=== PATIENT | male | born 1940 | race Caucasian/White ===

== ENCOUNTER → 2016-09-28 | Outpatient (CLI) | payer OTHER ==
[2016-03-04 11:13] VITALS: BP 141/64
--- NOTE | 2016-09-29 21:59 | MRI ---
Indication: Pain Exam: MRI left shoulder. Technique: Routine multiplanar multisequence imaging was performed through the left shoulder without contrast. Findings: The glenohumeral joint is intact. There is a moderate full thickness tear of the distal wong praspinatus tendon with fluid signal in the defect which measures approximately 2 cm. There is moder ate thickening and abnormal signal along the infraspinatus tendon with a small amount of fluid in th e surrounding bursa. There are moderate hypertrophic changes of the AC joint extending inferiorly ca using moderate narrowing of the acromiohumeral space. There is moderate thinning of the articular ca rtilage along the glenohumeral joint . The biceps tendon is intact. The labrum is intact and normal signal intensity. Impression: Moderate full-thickness tear of the distal supraspinatus tendon and associated joint effusion with m ild fluid in the surrounding bursa. Moderate infraspinatus tendinosis. Moderate hypertrophic changes of the AC joint causing moderate narrowing of the acromiohumeral space . 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 Reported By:
== END ==
LOC: RAD 08:21
PROVIDERS: ATTEND Specialist
DX: M19.012 Primary osteoarthritis, left shoulder (principal)
CPT/HCPCS: 73221

== ENCOUNTER 2016-11-07 14:28 | Emergency (ER) | payer OTHER ==
[2016-11-07 14:35] VITALS: BP 158/74; BMI 29.7
--- NOTE | 2016-11-07 16:12 | DR.GENAD ---
HPI - PCP Primary Care Physician: DR. WINTERS - Complaint/Symptoms Chief Complaint Doctors Comments: Patient complains of right lower back pain for the past two weeks. States he went to see Christina and she gave him a shot but it did not stop the pain. States he has not slept in two weeks due to the pain he has not been able to lay down and he thought it was his kidneys. He is having sharp lower back pain worst on bending or movement. He denies dysuria, hematuria, fever, chills or recent trauma. He is to have left should surgry by Dr. Steele but he has to have an echocardiogram to check his heart out. Chief Complaint:: THINKS HE HAS KIDNEY PROBLEMS. LOWER BACK AREA PAIN TIMES 2 WEEKS. - Nurses notes reviewed Nurses Notes Review: Yes - Source History Provided: Patient - Mode of Arrival Mode of Arrival: Ambulatory - Timing Onset of Chief Complaint: 10/24/16 Came on: Gradually - Duration Duration: Intermittent How lon Duration: Hours - Location Location: right lower back pain - Severity Severity: Moderate, Severe - Modifying Factors Worsens:: movement, bending Improves:: nothing PMH - PMH Past Medical History: Yes Past Medical History: Coronary Artery Disease, Hypertension, [place] Past Surgical History: Yes Surgical History: Angioplasty/Stents, Ortho Surgery - Family History History of Family Medical Conditions: Yes Family Medical History: [place] - Social History Does patient currently use any type of tobacco product: No Have you used tobacco products in the last 12 months: No Type of Tobacco Use: None Does any household member use tobacco: No Alcohol Use: None Do you use any recreational Drugs:: No Lives With: Family Lives Where: Home - infectious screening In the last 2 months have you had wt loss of >10#?: NO Have you had fever, night sweats or hemotysis?: No Have you traveled outside the country in the last 6 months?: No Isolation: Standard ROS - Review of Systems Constitutional: No Symptoms Reported, Malaise, Loss of Appetite Eyes: No Symptoms Reported ENTM: No Symptoms Reported. negative: See HPI, Ear Pain, Ear Discharge, Pulling on Ears, Hearing Loss, Nose Pain, Nose Discharge, Epistaxis, Nose Congestion, Mouth Pain, Mouth Swelling, Loose Teeth, Drooling, Throat Pain, Throat Swelling, Ear Foreign Body Respiratoy: No Symptoms Reported Cardiovascular: No Symptoms Reported Gastrointestinal/Abdominal: No Symptoms Reported Genitourinary: No Symptoms Reported. negative: See HPI, Discharge, Dysuria, Frequency, Hematuria, Pain, Bleeding, Other Neurological: No Symptoms Reported Musculoskeletal: No Symptoms Reported Integumentary: No Symptoms Reported Endocrine: No Symptoms Reported Psychiatric: No Symptoms Reported PE - Vital Signs Vitals: Temperature 98.4 F Pulse Rate 61 Respiratory Rate 20 Blood Pressure [Right Arm] 144/60 Blood Pressure 158/74 O2 Sat by Pulse Oximetry 97 - General Limitations: No Limitations General Appearance: Alert, In No Apparent Distress, In Distress - Head Head Exam: Normal Inspection, Atraumatic, Normocephalic - Eyes Eye exam: Normal Appearance, PERRL, EOMI. negative: Scleral Icterus, Conjunctival Injection, Nystagmus, Miosis, Mydrasis, Periorbital Swelling, Periorbital Tenderness, Other - ENT ENT Exam: Normal Exam, Normal Oropharynx, Normal External Ear Exam, Mucous Membranes Moist, TM's Normal Bilaterally TM/Canal Exam: Bilateral Normal Nose Exam: Normal Nose Exam, Sinus Tenderness, Nasal Deviation, Septal Hematoma , Laceration. negative: Crepitus Mouth Exam: Normal Inspection Throat Exam: Normal Inspection, Tonsillar Erythema, Tonsillomegaly - Neck Neck Exam: Normal Inspection, Full ROM - Chest Chest Inspection: Symmetric Chest Wall Rise - Cardiovascular Cardiovascular Exam: Regular Rate, Normal Rhythm, Irregular Rhythm, Systolic Murmur - Abdominal Exam Abdominal Exam: Normal Inspection, Normal Bowel Sounds, Soft Abdominal Tenderness: Epigastrium, Mild - Extremities Extremities Exam: Normal Inspection, Full ROM, Tenderness, Normal Capillary Refill - Back Back Exam: Normal Inspection, Full ROM - Neurologic Neurological Exam: Alert, Oriented X3, CN II-XII Intact, Normal Gait, Reflexes Normal - Skin Skin Exam: Warm, Dry. negative: Intact, Normal Color, Rash, Cyanosis, Diaphoresis, Erythema, Pallor, Mottled, Other ROR - Labs Reviewed Laboratory Results Reviewed?: Yes (All labs and x-ray results reviewed and discussed with patient) Result Diagrams: 11/07/16 16:15 11/07/16 16:15 Laboratory: WBC 8.1 X10^3/uL (3.6-10.0) 11/07/16 16:15 RBC 4.45 X10^6/uL (4.7-6.0) L 11/07/16 16:15 Hgb 13.7 g/dL (13.5-18.0) 11/07/16 16:15 Hct 40.7 % (42.0-54.0) L 11/07/16 16:15 MCV 91.4 fL (80.0-100.0) 11/07/16 16:15 MCH 30.8 pg (27.0-34.0) 11/07/16 16:15 MCHC 33.7 g/dL (33.0-35.0) 11/07/16 16:15 RDW 14.4 % (11.6-16.5) 11/07/16 16:15 Plt Count 151 X10^3/uL (150.0-450.0) 11/07/16 16:15 MPV 9.6 fL (7.4-11.0) 11/07/16 16:15 Neut % 68.6 % (42.0-75.0) 11/07/16 16:15 Lymph % 18.3 % (21.0-51.0) L 11/07/16 16:15 [place] % 7.3 % (0.0-13.0) 11/07/16 16:15 Eos % 5.3 % (0.9-2.9) H 11/07/16 16:15 Baso % 0.5 % (0.2-1.0) 11/07/16 16:15 Neut # 5.5 x10^3/uL (2.2-4.8) H 11/07/16 16:15 Lymph # 1.5 X10^3/uL (1.3-2.9) 11/07/16 16:15 [place] # 0.6 x10^3/uL (0.3-0.8) 11/07/16 16:15 Eos # 0.4 x10^3/uL (0.0-0.2) H 11/07/16 16:15 Baso # 0.0 X10^3/uL (0.0-0.1) 11/07/16 16:15 Absolute Nucleated RBC 0.0 /100WBC 11/07/16 16:15 Sodium 143 mmol/L (136-145) 11/07/16 16:15 Corrected Sodium 144 mmol/L (136-145) 11/07/16 16:15 Potassium 5.7 mmol/L (3.5-5.1) H 11/07/16 16:15 Chloride 111 mmol/L (98-107) H 11/07/16 16:15 Carbon Dioxide 26.9 mmol/L (21-32) 11/07/16 16:15 BUN 20 mg/dL (7-18) H 11/07/16 16:15 Creatinine 1.43 mg/dL (0.70-1.30) H 11/07/16 16:15 Est GFR (MDRD) Af Amer > 60 (>60) 11/07/16 16:15 Est GFR (MDRD) Non-Af 51 (>60) L 11/07/16 16:15 Glucose 158 mg/dL (65-99) H 11/07/16 16:15 Calcium 9.4 mg/dL (8.5-10.1) 11/07/16 16:15 Corrected Calcium TNP 11/07/16 16:15 Total Bilirubin 0.50 mg/dL (0.2-1.0) 11/07/16 16:15 AST 19 Units/L (15-37) 11/07/16 16:15 ALT 31 Units/L (12-78) 11/07/16 16:15 Alkaline Phosphatase 106 Units/L (46-116) 11/07/16 16:15 Total Protein 7.1 g/dL (6.4-8.2) 11/07/16 16:15 Albumin 3.8 g/dL (3.4-5.0) 11/07/16 16:15 Globulin 3.3 g/dL (2.5-4.5) 11/07/16 16:15 Albumin/Globulin Ratio 1.2 Ratio (1.1-2.1) 11/07/16 16:15 Amylase 72 Units/L (25-115) 11/07/16 16:15 Lipase 278 Units/L (73-393) 11/07/16 16:15 Specimen Type Clean catch urine 11/07/16 19:00 Urine Color Yellow (YELLOW) 11/07/16 19:00 Urine Appearance Clear (CLEAR) 11/07/16 19:00 Urine pH 5.0 (5.0 - 8.0) 11/07/16 19:00 Ur Specific [place] 1.025 (1.000-1.030) 11/07/16 19:00 Urine Protein 1+ (NEGATIVE) 11/07/16 19:00 Urine Glucose (UA) 3+ (NEGATIVE) 11/07/16 19:00 Urine Ketones Negative (NEGATIVE) 11/07/16 19:00 Urine Occult Blood Negative (NEGATIVE) 11/07/16 19:00 Urine Nitrite Negative (NEGATIVE) 11/07/16 19:00 Urine Bilirubin Negative (NEGATIVE) 11/07/16 19:00 Urine Urobilinogen Normal (NORMAL) 11/07/16 19:00 Ur Leukocyte Esterase Negative (NEGATIVE) 11/07/16 19:00 Urine RBC None seen /HPF (NEGATIVE) 11/07/16 19:00 Urine WBC 0-2 /HPF (NEGATIVE) 11/07/16 19:00 Ur Squamous Epith Cells Rare /HPF (NEGATIVE) 11/07/16 19:00 Urine Bacteria Trace /HPF (NEGATIVE) 11/07/16 19:00 Ur Culture Indicated? No/not indicated 11/07/16 19:00 - XRAY XRAY Interpreted by: Radiologist (CT abdomen: No [id number] of renal stone. Cholelithiasis; Diverticulosis of colon. Normal appendix Right inguinal hernia; prostatomegaly.) - Diagnosis Discharge Problem: Right inguinal hernia, Hyperglycemia, UTI (urinary tract infection), Decreased hearing, Degenerative disc disease, lumbar, Chronic kidney disease Abdominal pain Qualifiers: Abdominal location: right lower quadrant Qualified Code(s): R10.31 - Right lower quadrant pain Cholelithiasis Qualifiers: Cholecystitis acuity: chronic - Discharge Plan Disposition: HOME, SELF-CARE Condition: Stable Prescriptions: Levofloxacin [LEVAQUIN TAB 250 MG *] 250 mg PO Q24H #7 tab - Follow ups/Referrals Follow ups/Referrals: CHRIS WINTERS [Primary Care Provider] - 3 days ADILSON HERRERA [STAFF PHYSICIAN] - 3 days - Instructions Instructions: Urinary Tract Infection, Cholelithiasis, Urinary Tract Infection , [id number], Diverticulosis, Type 2 Diabetes Mellitus, Adult, Hyperkalemia, Potassium Content of Foods
[2016-11-07 16:19] LABS: BASOPHILS % (AUTO) 0.5 % (0.2-1.0); EOSINOPHILS # (AUTO) 0.4 x10^3/uL (0.0-0.2); EOSINOPHILS % (AUTO) 5.3 % (0.9-2.9); HEMATOCRIT 40.7 % (42.0-54.0); HEMOGLOBIN 13.7 g/dL (13.5-18.0); LYMPHOCYTES # (AUTO) 1.5 X10^3/uL (1.3-2.9); LYMPHOCYTES % (AUTO) 18.3 % (21.0-51.0); MEAN CORPUSCULAR HEMOGLOBIN 30.8 pg (27.0-34.0); MEAN CORPUSCULAR HGB CONC 33.7 g/dL (33.0-35.0); MEAN CORPUSCULAR VOLUME 91.4 fL (80.0-100.0); MEAN PLATELET VOLUME 9.6 fL (7.4-11.0); MONOCYTES # (AUTO) 0.6 x10^3/uL (0.3-0.8); MONOCYTES % (AUTO) 7.3 % (0.0-13.0); NEUTROPHILS # (AUTO) 5.5 x10^3/uL (2.2-4.8); NEUTROPHILS % (AUTO) 68.6 % (42.0-75.0); PLATELET COUNT 151 X10^3/uL (150.0-450.0); RED BLOOD COUNT 4.45 X10^6/uL (4.7-6.0); RED CELL DISTRIBUTION WIDTH 14.4 % (11.6-16.5); WHITE BLOOD COUNT 8.1 X10^3/uL (3.6-10.0)
[2016-11-07 16:31] LABS: ALANINE AMINOTRANSFERASE 31 Units/L (12-78); ALBUMIN 3.8 g/dL (3.4-5.0); ALKALINE PHOSPHATASE 106 Units/L (46-116); AMYLASE 72 Units/L (25-115); ASPARTATE AMINO TRANSFERASE 19 Units/L (15-37); BLOOD UREA NITROGEN 20 mg/dL (7-18); CALCIUM 9.4 mg/dL (8.5-10.1); CARBON DIOXIDE 26.9 mmol/L (21-32); CHLORIDE 111 mmol/L (98-107); COR NA(FOR HYPERGLY) 144 mmol/L (136-145); CREATININE 1.43 mg/dL (0.70-1.30); GLUCOSE 158 mg/dL (65-99); LIPASE 278 Units/L (73-393); SODIUM 143 mmol/L (136-145); TOTAL PROTEIN 7.1 g/dL (6.4-8.2); eGFR BLACK RACES > 60 (>60); eGFR NON BLACK RACES 51 (>60)
--- NOTE | 2016-11-07 18:39 | CT ---
CT ABDOMEN AND PELVIS WITHOUT CONTRAST CLINICAL HISTORY: 76-year-old male with right flank pain. COMPARISON: None. TECHNIQUE: Multiple contiguous computed tomographic axial images of the abdomen and pelvis were obta ined without the use of oral or intravenous contrast. Images were reformatted in the coronal and sag ittal planes. FINDINGS: The lung bases demonstrate no evidence of focal air-space opacification, pleural effusion, pneumotho rax, or suspicious pulmonary nodules. The imaged inferior mediastinum and heart are normal in appea williams without evidence of pericardial effusion. Significant atherosclerotic calcification of the cor onary arteries is present. Liver, spleen and pancreas are normal for study without contrast. There are few hyperdense gallstone s within the gallbladder without pericholecystic fluid or inflammatory change to suggest cholecystit is. The adrenal glands and kidneys are normal bilaterally. Mild bilateral perinephric stranding. There a re no nephroureteral stones or perinephric fluid collections. There is no evidence of hydroureterone phrosis and the ureters run in an unobstructed course to a well distended urinary bladder. Prostate measures 4.0 x 5.5 cm with normal appearing seminal vesicles and external genitalia. There is a right inguinal hernia containing a single knuckle of small bowel without evidence of incarcerat ion or strangulation. The cecum and appendix are within the left lower quadrant. The appendix is normal in appearance. Th e bowel is without obstruction or inflammation and there is no free fluid or free air within the per itoneal cavity. Scattered diverticular disease without CT evidence of diverticulitis. There are no p athologically enlarged lymph nodes in the abdomen or pelvis. Moderate calcific atherosclerotic plaque is present within the aorta and its branches. Small fat containing umbilical hernia. The osseous structures are intact without fracture or malalignment. IMPRESSION: 1. No evidence of renal stones or hydroureteronephrosis. 2. Cholelithiasis without CT evidence of cholecystitis. 3. Diverticulosis without CT evidence of diverticulitis. 4. The cecum and appendix lie in the left lower quadrant with no appendicitis. 5. Small bowel containing right inguinal hernia without evidence of strangulation or incarceration. 6. Borderline prostatomegaly, correlate with PSA. Reported By:
[2016-11-07] MEDS ORDERED: DECADRON INJ IM ONE (18:58)
[2016-11-07] MEDS ORDERED: TORADOL 60 MG VIAL IM ONE (18:58)
[2016-11-07] MEDS ORDERED: DECADRON INJ ONE (19:02)
[2016-11-07] MEDS ORDERED: TORADOL 60 MG VIAL ONE (19:02)
[2016-11-07 19:07] LABS: BILIRUBIN,URINE NEGATIVE (NEGATIVE); BLOOD/HEMOGLOBIN,URINE NEGATIVE (NEGATIVE); GLUCOSE, URINE 3+ (NEGATIVE); KETONES,URINE NEGATIVE (NEGATIVE); LEUKOCYTE ESTERASE ,URINE NEGATIVE (NEGATIVE); NITRITES,URINE NEGATIVE (NEGATIVE); PROTEIN,URINE 1+ (NEGATIVE); UROBILINOGEN,URINE NORMAL (NORMAL)
[2016-11-07 19:13] LABS: APPEARANCE,URINE CLEAR (CLEAR); BACTERIA,URINE TRACE /HPF (NEGATIVE); COLOR,URINE YELLOW (YELLOW); RBC,URINE NONE SEEN /HPF (NEGATIVE); SQUAMOUS EPITHELIAL CELL,UR RARE /HPF (NEGATIVE)
[2016-11-07] MEDS ORDERED: KAYEXALATE PO ONE (19:22)
[2016-11-07] MEDS ORDERED: KAYEXALATE ONE (19:50)
[2016-11-07] MEDS ORDERED: LEVAQUIN TAB 500 MG PO SCH (20:00)
[2016-11-07] MEDS ORDERED: LEVAQUIN TAB 500 MG ONE (20:01)
== END 2016-11-07 20:12 | disposition home or self-care (01) ==
LOC: ER 14:38
DX: K40.90 Unilateral inguinal hernia, without obstruction or gangrene, not specified as recurrent (principal); R73.9 Hyperglycemia, unspecified; N39.0 Urinary tract infection, site not specified; R10.31 Right lower quadrant pain; H91.90 Unspecified hearing loss, unspecified ear; M51.36 Other intervertebral disc degeneration, lumbar region; N28.9 Disorder of kidney and ureter, unspecified
CPT/HCPCS: 36415; 74176; 80053; 81001; 82150; 83690; 85025; 96372; 99283; J1100; J1885

== ENCOUNTER → 2016-11-10 | Outpatient (CLI) | payer OTHER ==
[2016-11-07 14:35] VITALS: BP 158/74
--- NOTE | 2016-11-10 11:16 | RAD ---
HISTORY: Low back pain Study: Lumbar spine five view Comparison: None Findings: The alignment is normal. The vertebral bodies are of average height. The disc spaces are preserved. Pedicles are intact. The SI joints are normal. Facet degenerative joint disease is present. There is a calcification just to the left of L4 which could represent a karely calcification or could represe nt a ureteral calculus. Clinical correlation should determine the need for further evaluation with s tone protocol CT. IMPRESSION: Facet degenerative joint disease Calcification just to the left of L4. Differential diagnosis and recommendations as above Reported By:
--- NOTE | 2016-11-10 11:20 | RAD ---
HISTORY: Back pain Study: Thoracic spine three view Comparison: None Findings: The alignment is normal. The vertebral bodies are of average height. The disc spaces are preserved. The pedicles are intact. Diffuse moderately severe spondylosis is present in the lower thoracic spin e. The paraspinous soft tissues are normal. IMPRESSION: Diffuse relatively severe thoracic spondylosis Reported By:
== END | disposition home or self-care (01) ==
LOC: RAD 09:48
PROVIDERS: ATTEND Nurse Practitioner Family
DX: M54.5 Low back pain (principal); S29.8XXA Other specified injuries of thorax, initial encounter; X58.XXXA Exposure to other specified factors, initial encounter; M47.896 Other spondylosis, lumbar region; M47.894 Other spondylosis, thoracic region
CPT/HCPCS: 72072; 72100

== ENCOUNTER → 2016-11-27 | Outpatient (CLI) | payer OTHER ==
[2016-11-07 14:35] VITALS: BP 158/74
--- NOTE | 2016-11-30 11:18 | MRI ---
HISTORY: Low back pain Study: MRI lumbar spine without contrast Comparison: None Technique: Multiplanar multi-sequence MRI of the lumbar spine was obtained. Sagittal T1, sagittal T 2, and stir weighted images, axial T1, and axial T2 images were obtained. Findings: The lumbar spine demonstrates normal alignment with the expected signal characteristics of the bone marrow. The conus of the cord terminates normally. T12 -- L1: No evidence for compressive disc disease. The neural foramina are patent. The joints are normal. L1 -- L2: No evidence for compressive disc disease. The neural foramina are patent. The joints are n ormal. L2 -- L3: No evidence for compressive disc disease. The neural foramina are patent. The joints are n ormal. L3 -- L4: No evidence for compressive disc disease. The neural foramina are patent. Mild bilateral f acet arthropathy is present. L4 -- L5: No evidence for compressive disc disease. The neural foramina are patent. Mild bilateral f acet arthropathy is present. L5 -- S1: Mild concentric disc bulging contributes along with mild facet arthropathy to mild lateral recess narrowing bilaterally. IMPRESSION: As above Reported By:
--- NOTE | 2016-11-30 11:21 | MRI ---
HISTORY: Degenerative disc disease, back pain thoracic area Study: MRI lumbar spine without contrast Comparison: None Technique: Multi planar multi sequence non contrast imaging Findings: The prevertebral soft tissues are normal. The alignment is normal. The vertebral body bone signal is normal. No compression fractures are identified. Moderate anterior spondylosis is present in the mi d and lower thoracic spine. The thoracic spinal cord is normal in size and configuration and without foci of abnormal signal or syrinx. There is no evidence for compressive disc disease or compressive spondylitic change at any level. IMPRESSION: Moderate anterior spondylosis in the mid and lower thoracic spine. No evidence for compression fracture, compressive disc disease, or compresses spondylitic change at any level. Reported By:
== END | disposition home or self-care (01) | DRG 552 ==
LOC: RAD 09:12
PROVIDERS: ATTEND Nurse Practitioner Family
DX: M54.5 Low back pain (principal); M51.34 Other intervertebral disc degeneration, thoracic region; M47.896 Other spondylosis, lumbar region; M47.894 Other spondylosis, thoracic region
CPT/HCPCS: 72146; 72148

== ENCOUNTER → 2016-12-17 | Outpatient (CLI) | payer OTHER ==
[2016-12-17 08:39] LABS: BASOPHILS % (AUTO) 0.5 % (0.2-1.0); EOSINOPHILS # (AUTO) 0.3 x10^3/uL (0.0-0.2); EOSINOPHILS % (AUTO) 4.5 % (0.9-2.9); HEMATOCRIT 37.4 % (42.0-54.0); LYMPHOCYTES # (AUTO) 1.2 X10^3/uL (1.3-2.9); MEAN CORPUSCULAR HEMOGLOBIN 31.5 pg (27.0-34.0); MEAN CORPUSCULAR HGB CONC 34.7 g/dL (33.0-35.0); MEAN CORPUSCULAR VOLUME 90.8 fL (80.0-100.0); MEAN PLATELET VOLUME 9.2 fL (7.4-11.0); MONOCYTES # (AUTO) 0.6 x10^3/uL (0.3-0.8); MONOCYTES % (AUTO) 8.2 % (0.0-13.0); NEUTROPHILS # (AUTO) 5.4 x10^3/uL (2.2-4.8); NEUTROPHILS % (AUTO) 70.8 % (42.0-75.0); PLATELET COUNT 144 X10^3/uL (150.0-450.0); RED BLOOD COUNT 4.12 X10^6/uL (4.7-6.0); RED CELL DISTRIBUTION WIDTH 14.7 % (11.6-16.5); WHITE BLOOD COUNT 7.7 X10^3/uL (3.6-10.0)
[2016-12-17 08:47] LABS: HEMOGLOBIN A1C 6.8 % (4.5-6.2)
[2016-12-17 08:48] LABS: ALBUMIN 3.3 g/dL (3.4-5.0); BLOOD UREA NITROGEN 9 mg/dL (7-18); CALCIUM 8.2 mg/dL (8.5-10.1); CARBON DIOXIDE 30.5 mmol/L (21-32); CHLORIDE 108 mmol/L (98-107); CHOL/HDL RATIO 2.5 (0.0-5.0); CHOLESTEROL 85 mg/dL (0-200); COR CA(FOR HYPOALB) 8.8 mg/dL (8.5-10.1); COR NA(FOR HYPERGLY) 145 mmol/L (136-145); CREATININE 1.09 mg/dL (0.70-1.30); GLUCOSE 126 mg/dL (65-99); HDL CHOLESTEROL 34 mg/dL (40-60); PHOSPHORUS 3.1 mg/dL (2.6-4.7); SODIUM 144 mmol/L (136-145); TRIGLYCERIDES 57 mg/dL (0-150); URIC ACID 5.7 mg/dL (3.5-7.2); eGFR BLACK RACES > 60 (>60); eGFR NON BLACK RACES > 60 (>60)
== END ==
LOC: LAB 07:30
PROVIDERS: ATTEND Internal Medicine
DX: I12.9 Hypertensive chronic kidney disease with stage 1 through stage 4 chronic kidney disease, or unspecified chronic kidney disease (principal); N18.3 Chronic kidney disease, stage 3 (moderate); E11.9 Type 2 diabetes mellitus without complications
CPT/HCPCS: 36415; 80061; 80069; 83036; 84550; 85025

== ENCOUNTER → 2016-12-21 | Outpatient (CLI) | payer OTHER ==
--- NOTE | 2016-12-21 10:07 | RAD ---
Chest, two views Indication: Preoperative evaluation Comparison: February 28, 2016 Findings: The lungs are clear without focal consolidation. No pleural effusion or pneumothorax is id entified. Cardiomediastinal silhouette is within normal limits. Osseous thorax is unremarkable. Impression: No acute cardiopulmonary disease. Reported By:
[2016-12-21 10:25] LABS: BILIRUBIN,URINE NEGATIVE (NEGATIVE); BLOOD/HEMOGLOBIN,URINE NEGATIVE (NEGATIVE); GLUCOSE, URINE 4+ (NEGATIVE); KETONES,URINE NEGATIVE (NEGATIVE); LEUKOCYTE ESTERASE ,URINE 1+ (NEGATIVE); NITRITES,URINE NEGATIVE (NEGATIVE); PROTEIN,URINE 1+ (NEGATIVE); UROBILINOGEN,URINE NORMAL (NORMAL)
[2016-12-21 10:26] LABS: BASOPHILS % (AUTO) 0.6 % (0.2-1.0); EOSINOPHILS # (AUTO) 0.4 x10^3/uL (0.0-0.2); EOSINOPHILS % (AUTO) 4.5 % (0.9-2.9); HEMATOCRIT 38.7 % (42.0-54.0); HEMOGLOBIN 13.2 g/dL (13.5-18.0); LYMPHOCYTES # (AUTO) 1.3 X10^3/uL (1.3-2.9); LYMPHOCYTES % (AUTO) 15.9 % (21.0-51.0); MEAN CORPUSCULAR HEMOGLOBIN 31.4 pg (27.0-34.0); MEAN CORPUSCULAR HGB CONC 34.1 g/dL (33.0-35.0); MEAN PLATELET VOLUME 9.8 fL (7.4-11.0); MONOCYTES # (AUTO) 0.6 x10^3/uL (0.3-0.8); MONOCYTES % (AUTO) 7.1 % (0.0-13.0); NEUTROPHILS # (AUTO) 5.8 x10^3/uL (2.2-4.8); NEUTROPHILS % (AUTO) 71.9 % (42.0-75.0); PLATELET COUNT 137 X10^3/uL (150.0-450.0); RED CELL DISTRIBUTION WIDTH 14.5 % (11.6-16.5)
[2016-12-21 10:31] LABS: ALANINE AMINOTRANSFERASE 18 Units/L (12-78); ALBUMIN 3.3 g/dL (3.4-5.0); ALKALINE PHOSPHATASE 94 Units/L (46-116); ASPARTATE AMINO TRANSFERASE 14 Units/L (15-37); BLOOD UREA NITROGEN 11 mg/dL (7-18); CALCIUM 7.8 mg/dL (8.5-10.1); CARBON DIOXIDE 28.6 mmol/L (21-32); CHLORIDE 108 mmol/L (98-107); COR CA(FOR HYPOALB) 8.4 mg/dL (8.5-10.1); COR NA(FOR HYPERGLY) 145 mmol/L (136-145); CREATININE 1.08 mg/dL (0.70-1.30); GLUCOSE 159 mg/dL (65-99); SODIUM 144 mmol/L (136-145); TOTAL PROTEIN 6.7 g/dL (6.4-8.2); eGFR BLACK RACES > 60 (>60); eGFR NON BLACK RACES > 60 (>60)
[2016-12-21 10:37] LABS: APPEARANCE,URINE CLEAR (CLEAR); BACTERIA,URINE NEGATIVE /HPF (NEGATIVE); COLOR,URINE YELLOW (YELLOW); RBC,URINE NONE SEEN /HPF (NEGATIVE); SQUAMOUS EPITHELIAL CELL,UR RARE /HPF (NEGATIVE)
== END ==
LOC: LAB 09:39
PROVIDERS: ATTEND Specialist
DX: Z01.818 Encounter for other preprocedural examination (principal); Z01.810 Encounter for preprocedural cardiovascular examination; Z01.811 Encounter for preprocedural respiratory examination; Z79.899 Other long term (current) drug therapy; Z11.8 Encounter for screening for other infectious and parasitic diseases; M75.122 Complete rotator cuff tear or rupture of left shoulder, not specified as traumatic
CPT/HCPCS: 36415; 71020; 80053; 81001; 85025; 87641; 93005; 93010

== ENCOUNTER → 2016-12-28 | Day surgery (SDC) | payer OTHER ==
[~2016-12-28] MED LIST: ANCEF VIAL 1 GM ONE; BENADRYL INJ 50 MG VIAL IVP PRN; D5 LR 1000 ML 1,000 ML IV ONE; DILAUDID INJ IVP PRN; DIPRIVAN VIAL ONE; FENTANYL INJ 250 mcg ONE; MARCAINE 0.25% WITH EPI IJ ONE; NEOSTIGMINE INJ ONE; NORCURON INJ 10 MG VIAL ONE; NS 50 ML IV + SPIKE MINIBAG* 50 ML IV ONE; NS IRRIGATION 3000 ML 3,000 ML with ADRENALINE CHL INJ 1 MG IR ONE; PHENERGAN INJ 25 MG IVP PRN; PHENERGAN INJ 25 MG ONE; QUELICIN (OR ANECTINE) ONE; REGLAN INJ 10 MG VIAL IVP PRN; ROBINUL ONE; SUPRANE IN ONE; VERSED ONE; XYLOCAINE 2 % (PLAIN) ONE; ZOFRAN INJ 4 MG VIAL IVP PRN; ZOFRAN INJ 4 MG VIAL ONE
[2016-12-28 13:09] VITALS: BP 166/69
== END | disposition home or self-care (01) | DRG 479 ==
LOC: SURG1 07:50
PROVIDERS: ATTEND Specialist
PROC: 0PB Upper Bones, Excision (ICD-10-PCS; 2016-12-28)
PROC: 0LQ24ZZ Repair Left Shoulder Tendon, Percutaneous Endoscopic Approach (ICD-10-PCS; 2016-12-28)
PROC: 0MN24ZZ Release Left Shoulder Bursa and Ligament, Percutaneous Endoscopic Approach (ICD-10-PCS; principal; 2016-12-28 09:00)
DX: M25.812 Other specified joint disorders, left shoulder (principal); M13.812 Other specified arthritis, left shoulder; M75.102 Unspecified rotator cuff tear or rupture of left shoulder, not specified as traumatic
CPT/HCPCS: 99100; A4216; A4222; E0190; S0020; J0170; J0330; J0690; J2001; J2250; J2405; J2550; J2710; J3010; J3490; J7120

== ENCOUNTER → 2017-02-11 | Outpatient (CLI) | payer OTHER ==
[2016-12-28 13:09] VITALS: BP 166/69
--- NOTE | 2017-02-11 16:13 | RAD ---
History: Left shoulder pain. Study: Three views of the left shoulder, including AP and Y-view and axillary views Comparison: June 10, 2016 Findings: Since the prior examination there has been a rotator cuff repair. There has been resection of inferior osteophyte formation about the distal clavicle. The glenohumeral joint is unremarkable. Impression: Postsurgical changes, no evidence for acute disease. Reported By:
== END ==
LOC: RAD 14:29
PROVIDERS: ATTEND Specialist
DX: M75.102 Unspecified rotator cuff tear or rupture of left shoulder, not specified as traumatic (principal)
CPT/HCPCS: 73030

== ENCOUNTER → 2017-02-24 | Outpatient (CLI) | payer OTHER ==
[2016-12-28 13:09] VITALS: BP 166/69
[2017-02-24 08:47] LABS: HEMOGLOBIN A1C 6.7 % (4.5-6.2)
[2017-02-24 08:51] LABS: ALANINE AMINOTRANSFERASE 32 Units/L (12-78); ALBUMIN 3.8 g/dL (3.4-5.0); ALKALINE PHOSPHATASE 115 Units/L (46-116); ASPARTATE AMINO TRANSFERASE 19 Units/L (15-37); BLOOD UREA NITROGEN 17 mg/dL (7-18); CARBON DIOXIDE 28.4 mmol/L (21-32); CHLORIDE 107 mmol/L (98-107); COR NA(FOR HYPERGLY) 144 mmol/L (136-145); CREATININE 1.43 mg/dL (0.70-1.30); SODIUM 143 mmol/L (136-145); TOTAL PROTEIN 7.2 g/dL (6.4-8.2); eGFR BLACK RACES > 60 (>60); eGFR NON BLACK RACES 51 (>60)
[2017-02-26 08:19] LABS: VITAMIN D 25 OH 50 ng/mL (30-80)
== END ==
LOC: LAB 08:15
PROVIDERS: ATTEND Nurse Practitioner Family
DX: E11.8 Type 2 diabetes mellitus with unspecified complications (principal); M81.0 Age-related osteoporosis without current pathological fracture; G62.9 Polyneuropathy, unspecified; E29.1 Testicular hypofunction
CPT/HCPCS: 36415; 80053; 82306; 82607; 83036; 84403

== ENCOUNTER → 2017-03-18 | Outpatient (CLI) | payer OTHER ==
[2016-12-28 13:09] VITALS: BP 166/69
[2017-03-18 16:56] LABS: BASOPHILS % (AUTO) 0.7 % (0.2-1.0); EOSINOPHILS # (AUTO) 0.4 x10^3/uL (0.0-0.2); EOSINOPHILS % (AUTO) 6.4 % (0.9-2.9); HEMATOCRIT 36.7 % (42.0-54.0); HEMOGLOBIN 12.5 g/dL (13.5-18.0); LYMPHOCYTES # (AUTO) 1.3 X10^3/uL (1.3-2.9); LYMPHOCYTES % (AUTO) 19.3 % (21.0-51.0); MEAN CORPUSCULAR HEMOGLOBIN 31.5 pg (27.0-34.0); MEAN CORPUSCULAR HGB CONC 34.1 g/dL (33.0-35.0); MEAN CORPUSCULAR VOLUME 92.4 fL (80.0-100.0); MEAN PLATELET VOLUME 9.5 fL (7.4-11.0); MONOCYTES # (AUTO) 0.5 x10^3/uL (0.3-0.8); MONOCYTES % (AUTO) 7.4 % (0.0-13.0); NEUTROPHILS # (AUTO) 4.5 x10^3/uL (2.2-4.8); NEUTROPHILS % (AUTO) 66.2 % (42.0-75.0); PLATELET COUNT 140 X10^3/uL (150.0-450.0); RED BLOOD COUNT 3.97 X10^6/uL (4.7-6.0); RED CELL DISTRIBUTION WIDTH 14.5 % (11.6-16.5); WHITE BLOOD COUNT 6.7 X10^3/uL (3.6-10.0)
[2017-03-18 16:59] LABS: BLOOD UREA NITROGEN 12 mg/dL (7-18); CALCIUM 8.8 mg/dL (8.5-10.1); CARBON DIOXIDE 29.3 mmol/L (21-32); CHLORIDE 108 mmol/L (98-107); COR NA(FOR HYPERGLY) 144 mmol/L (136-145); CREATININE 1.28 mg/dL (0.70-1.30); SODIUM 143 mmol/L (136-145); eGFR BLACK RACES > 60 (>60); eGFR NON BLACK RACES 58 (>60)
--- NOTE | 2017-03-18 19:12 | VAS ---
VENOUS ULTRASOUND DOPPLER EXAMINATION OF THE LEFT UPPER EXTREMITY HISTORY: Left arm edema Comparison: None TECHNIQUE: Multiple thompson scale and color flow Doppler images of the deep venous system were obtained of the left upper extremity. FINDINGS: The deep venous system of the left upper extremity was evaluated from the level of the internal jugul ar vein through the antecubital fossa. Normal color flow and augmentation can be observed. In addit ion, normal compression is seen throughout the deep venous system. IMPRESSION: 1. Negative for DVT. Reported By:
--- NOTE | 2017-03-19 12:23 | RAD ---
HISTORY: Pain and swelling of the left upper extremity. Patient had surgery 10 weeks ago. Study: Three-view left shoulder Comparison: Multiple prior studies, most recently done 02/11/2017. Technique: AP views of the left shoulder obtained in internal and external rotation. A Y-view is also provided. Findings: There is widening of the left AC joint. Although this may be postsurgical, this was not present for t his extent on the prior studies and the findings suggest an AC separation. There are metallic anchors from rotator cuff tendon surgery. No evidence of fracture is seen. The glenohumeral articulation is well maintained. Adjacent left ribs appear intact. IMPRESSION: Postsurgical changes as noted above. The AC joint appears to be more widened on prior studies. Althou gh this may be postsurgical also, a left AC separation is not excluded. No fracture is seen. Reported By:
== END ==
LOC: LAB 15:48
PROVIDERS: ATTEND Nurse Practitioner Family
DX: M79.602 Pain in left arm (principal); M79.89 Other specified soft tissue disorders
CPT/HCPCS: 36415; 73030; 80048; 85025; 85378; 85610; 85730; 93971

== ENCOUNTER → 2017-04-16 | Outpatient (CLI) | payer OTHER ==
[2016-12-28 13:09] VITALS: BP 166/69
[2017-04-16 08:36] LABS: BASOPHILS # (AUTO) 0.1 X10^3/uL (0.0-0.1); BASOPHILS % (AUTO) 0.7 % (0.2-1.0); EOSINOPHILS # (AUTO) 0.4 x10^3/uL (0.0-0.2); EOSINOPHILS % (AUTO) 4.6 % (0.9-2.9); HEMATOCRIT 37.4 % (42.0-54.0); HEMOGLOBIN 12.8 g/dL (13.5-18.0); LYMPHOCYTES # (AUTO) 1.4 X10^3/uL (1.3-2.9); LYMPHOCYTES % (AUTO) 17.7 % (21.0-51.0); MEAN CORPUSCULAR HEMOGLOBIN 31.4 pg (27.0-34.0); MEAN CORPUSCULAR HGB CONC 34.3 g/dL (33.0-35.0); MEAN CORPUSCULAR VOLUME 91.7 fL (80.0-100.0); MEAN PLATELET VOLUME 9.5 fL (7.4-11.0); MONOCYTES # (AUTO) 0.6 x10^3/uL (0.3-0.8); MONOCYTES % (AUTO) 7.3 % (0.0-13.0); NEUTROPHILS # (AUTO) 5.6 x10^3/uL (2.2-4.8); NEUTROPHILS % (AUTO) 69.7 % (42.0-75.0); PLATELET COUNT 138 X10^3/uL (150.0-450.0); RED BLOOD COUNT 4.08 X10^6/uL (4.7-6.0); WHITE BLOOD COUNT 8.1 X10^3/uL (3.6-10.0)
[2017-04-16 08:43] LABS: HEMOGLOBIN A1C 6.5 % (4.5-6.2)
[2017-04-16 08:47] LABS: ALBUMIN 3.4 g/dL (3.4-5.0); BLOOD UREA NITROGEN 14 mg/dL (7-18); CALCIUM 8.8 mg/dL (8.5-10.1); CARBON DIOXIDE 27.5 mmol/L (21-32); CHLORIDE 108 mmol/L (98-107); CHOL/HDL RATIO 2.5 (0.0-5.0); CHOLESTEROL 87 mg/dL (0-200); CREATININE 1.11 mg/dL (0.70-1.30); HDL CHOLESTEROL 35 mg/dL (40-60); PHOSPHORUS 2.9 mg/dL (2.6-4.7); SODIUM 143 mmol/L (136-145); TRIGLYCERIDES 58 mg/dL (0-150); eGFR BLACK RACES > 60 (>60); eGFR NON BLACK RACES > 60 (>60)
== END ==
LOC: LAB 07:58
PROVIDERS: ATTEND Internal Medicine
DX: I12.9 Hypertensive chronic kidney disease with stage 1 through stage 4 chronic kidney disease, or unspecified chronic kidney disease (principal); E11.22 Type 2 diabetes mellitus with diabetic chronic kidney disease; N18.3 Chronic kidney disease, stage 3 (moderate)
CPT/HCPCS: 36415; 80061; 80069; 83036; 85025

== ENCOUNTER → 2017-06-17 | Outpatient (CLI) | payer OTHER ==
[2016-12-28 13:09] VITALS: BP 166/69
--- NOTE | 2017-06-17 15:17 | RAD ---
HISTORY: Pain Study: Left shoulder: Three views Comparison: 03/18/2017 Findings: Mild degenerative changes present in the acromioclavicular joint. It does not appear to be as widene d as it was on the most recent examination. Minimal downsloping of the acromion with minimal subacro mial spurring is noted. Evidence for previous rotator cuff repair is noted. [id number] glenoh umeral joint degeneration is noted. IMPRESSION: 1. Degenerative change and postoperative change in the left shoulder as described above. 2. No acute bony abnormalities are identified. Reported By:
== END ==
LOC: RAD 14:24
PROVIDERS: ATTEND Specialist
DX: M25.512 Pain in left shoulder (principal)
CPT/HCPCS: 73030

== ENCOUNTER → 2017-08-06 | Outpatient (CLI) | payer OTHER ==
[2016-12-28 13:09] VITALS: BP 166/69
[2017-08-06 08:19] LABS: BASOPHILS # (AUTO) 0.1 X10^3/uL (0.0-0.1); BASOPHILS % (AUTO) 0.6 % (0.2-1.0); EOSINOPHILS # (AUTO) 0.3 x10^3/uL (0.0-0.2); HEMATOCRIT 38.7 % (42.0-54.0); HEMOGLOBIN 13.2 g/dL (13.5-18.0); LYMPHOCYTES # (AUTO) 1.5 X10^3/uL (1.3-2.9); LYMPHOCYTES % (AUTO) 17.7 % (21.0-51.0); MEAN CORPUSCULAR HEMOGLOBIN 30.8 pg (27.0-34.0); MEAN CORPUSCULAR HGB CONC 34.1 g/dL (33.0-35.0); MEAN CORPUSCULAR VOLUME 90.4 fL (80.0-100.0); MEAN PLATELET VOLUME 9.6 fL (7.4-11.0); MONOCYTES # (AUTO) 0.6 x10^3/uL (0.3-0.8); MONOCYTES % (AUTO) 6.7 % (0.0-13.0); NEUTROPHILS # (AUTO) 6.3 x10^3/uL (2.2-4.8); PLATELET COUNT 142 X10^3/uL (150.0-450.0); RED BLOOD COUNT 4.28 X10^6/uL (4.7-6.0); WHITE BLOOD COUNT 8.7 X10^3/uL (3.6-10.0)
[2017-08-06 08:23] LABS: HEMOGLOBIN A1C 6.2 %
[2017-08-06 08:24] LABS: ALBUMIN 3.6 g/dL (3.4-5.0); BLOOD UREA NITROGEN 12 mg/dL (7-18); CALCIUM 8.3 mg/dL (8.5-10.1); CARBON DIOXIDE 29.9 mmol/L (21-32); CHLORIDE 105 mmol/L (98-107); CHOL/HDL RATIO 2.5 (0.0-5.0); CHOLESTEROL 99 mg/dL (0-200); COR NA(FOR HYPERGLY) 144 mmol/L (136-145); CREATININE 1.15 mg/dL (0.70-1.30); HDL CHOLESTEROL 39 mg/dL (40-60); SODIUM 143 mmol/L (136-145); TRIGLYCERIDES 48 mg/dL (0-150); URIC ACID 5.9 mg/dL (3.5-7.2); eGFR BLACK RACES > 60 (>60); eGFR NON BLACK RACES > 60 (>60)
== END ==
LOC: LAB 07:49
PROVIDERS: ATTEND Internal Medicine
DX: I12.9 Hypertensive chronic kidney disease with stage 1 through stage 4 chronic kidney disease, or unspecified chronic kidney disease (principal); N18.3 Chronic kidney disease, stage 3 (moderate); E11.22 Type 2 diabetes mellitus with diabetic chronic kidney disease
CPT/HCPCS: 36415; 80061; 80069; 83036; 84550; 85025

== ENCOUNTER 2022-06-06 07:05 | Inpatient (IN) ==
[2022-06-06] MEDS ORDERED: ZOFRAN INJ 4 MG VIAL IVP ONE ×2 (07:20→08:00)
[2022-06-06] MEDS ORDERED: NS 1,000 ML IV 1,000 ML ONE (07:22)
[2022-06-06] MEDS ORDERED: ZOFRAN INJ 4 MG VIAL ONE ×2 (07:22→07:58)
[2022-06-06 07:24] VITALS: BMI 25.7
--- NOTE | 2022-06-06 07:53 | DR.DIZZY ---
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 Chief Complaint:: PT REPORTS WEAKNESS, CLAMMY , DIAPHORETIC , PT IS VOMITING UP YELLOW BILE PT DENIES ANY PAIN , PT STATES " HE JUST WOKE UP LIKE THIS THIS AM "..BR Self Treatment fo Chief Complaint: PT IS BRADYCARDIC , PT THIS IS CHRONIC COVID-19 Coronavirus risk:travel/contact w/high risk person: No Has patient experienced Coronavirus symptoms: No Source History Provided: Patient Mode of Arrival Mode of Arrival: Stretcher Timing Onset of Chief Complaint: 06/05/22 Symptom Onset: Known Onset of Symptoms Start Date: 06/06/22 Onset of Symptoms Start Time: 06:30 Location of Weakness Weakness Location: Generalized Context Stroke Symptoms: Dizziness Associated signs and symptoms Associated Signs and Symptoms: Nausea PMH PMH Past Medical History: Yes Past Medical History: Coronary Artery Disease, Hypertension and [place] Past Surgical History: Yes Surgical History: Angioplasty/Stents and Ortho Surgery Family History History of Family Medical Conditions: Yes Family Medical History: [place] Social History Does patient currently use any type of tobacco product: No Have you used tobacco products in the last 12 months: No Type of Tobacco Use: None Does any household member use tobacco: No Alcohol Use: None Do you use any recreational Drugs:: No Lives With: Family Lives Where: Home Travel Risk Coronavirus risk:travel/contact w/high risk person: No Has patient experienced Coronavirus symptoms: No Infectious screening In the last 2 months have you had wt loss of >10#?: NO Have you had fever, night sweats or hemotysis?: No Have you traveled outside the country in the last 6 months?: No Isolation: Standard ROS Review of Systems Constitutional: Other (N,V AND DIZINESS) Eyes: No Symptoms Reported ENTM: No Symptoms Reported Respiratoy: No Symptoms Reported Cardiovascular: No Symptoms Reported Gastrointestinal/Abdominal: Nausea and Vomiting Genitourinary: No Symptoms Reported Neurological: Dizziness Musculoskeletal: No Symptoms Reported Integumentary: No Symptoms Reported Hematologic/Lymphatic: No Symptoms Reported Endocrine: No Symptoms Reported PE Vital Signs Vitals: Temperature 98.2 F Pulse Rate 50 Respiratory Rate 23 Blood Pressure [Left Arm] 153/69 Blood Pressure 160/68 O2 Sat by Pulse Oximetry 96 General Limitations: No Limitations General Appearance: In Distress (MODERATE DISTRESS) Head Head Exam: Normal Inspection, Atraumatic and Normocephalic Eyes Eye exam: Normal Appearance, PERRL and EOMI Pupils: Regular, Round: Bilateral ENT ENT Exam: Normal Exam, Normal Oropharynx and Normal External Ear Exam Neck Neck Exam: Normal Inspection, Full ROM and Trachea Midline Chest Chest Inspection: Normal Inspection and Symmetric Chest Wall Rise Respiratory Respiratory Exam: Normal Lung Sounds Bilat Cardiovascular Cardiovascular Exam: Bradycardia Abdominal Exam Abdominal Exam: Normal Inspection and Hyperactive Bowel Sounds Rectal Rectal Exam: Deferred Extremeties Extremities Exam: Normal Inspection and Full ROM Back Back Exam: Normal Inspection and Full ROM Neurologic Neurological Exam: Alert, Oriented X3 and CN II-XII Intact Patient Oriented To: Person, Place and Time Speech: Fluid Speech MDM Differential Diagnosis Differential Diagnosis: Dehydration, Electrolyte disorder, TIA and Other (HYPERTENSION,NAUSEA,VOMITING) ROR Labs Reviewed Result Diagrams: 06/08/22 05:47 06/08/22 05:47 Laboratory: 06/06/22 09:05 Blood Blood Culture - Preliminary 06/06/22 08:00 Blood Blood Culture - Preliminary WBC 11.3 X10^3/uL (3.6-10.0) H 06/06/22 08:00 RBC 4.18 X10^6/uL (4.7-6.0) L 06/06/22 08:00 Hgb 12.5 g/dL (13.5-18.0) L 06/06/22 08:00 Hct 37.8 % (42.0-54.0) L 06/06/22 08:00 MCV 90.4 fL (80.0-100.0) 06/06/22 08:00 MCH 29.9 pg (27.0-34.0) 06/06/22 08:00 MCHC 33.1 g/dL (33.0-35.0) 06/06/22 08:00 RDW 14.2 % (11.6-16.5) 06/06/22 08:00 Plt Count 153 X10^3/uL (150.0-450.0) 06/06/22 08:00 MPV 9.0 fL (7.4-11.0) 06/06/22 08:00 Neut % (Auto) 82.3 % (42.0-75.0) H 06/06/22 08:00 Lymph % (Auto) 10.9 % (21.0-51.0) L 06/06/22 08:00 [place] % (Auto) 4.9 % (0.0-13.0) 06/06/22 08:00 Eos % (Auto) 1.7 % (0.9-2.9) 06/06/22 08:00 Baso % (Auto) 0.2 % (0.2-1.0) 06/06/22 08:00 Neut # (Auto) 9.3 x10^3/uL (2.2-4.8) H 06/06/22 08:00 Lymph # (Auto) 1.2 X10^3/uL (1.3-2.9) L 06/06/22 08:00 [place] # (Auto) 0.6 x10^3/uL (0.3-0.8) 06/06/22 08:00 Eos # (Auto) 0.2 x10^3/uL (0.0-0.2) 06/06/22 08:00 Baso # (Auto) 0.0 X10^3/uL (0.0-0.1) 06/06/22 08:00 Absolute Nucleated RBC 0.0 /100WBC 06/06/22 08:00 Sodium 142 mmol/L (136-145) 06/06/22 08:00 Corrected Sodium 145 mmol/L (136-145) 06/06/22 08:00 Potassium 4.5 mmol/L (3.5-5.1) 06/06/22 08:00 Chloride 105 mmol/L (98-107) 06/06/22 08:00 Carbon Dioxide 30.5 mmol/L (21-32) 06/06/22 08:00 BUN 20 mg/dL (7-18) H 06/06/22 08:00 Creatinine 1.42 mg/dL (0.70-1.30) H 06/06/22 08:00 Est GFR (MDRD) Af Amer > 60 (>60) 06/06/22 08:00 Est GFR (MDRD) Non-Af 51 (>60) L 06/06/22 08:00 Glucose 215 mg/dL (65-99) H 06/06/22 08:00 Calcium 8.6 mg/dL (8.5-10.1) 06/06/22 08:00 Corrected Calcium TNP 06/06/22 08:00 Total Bilirubin 0.60 mg/dL (0.2-1.0) 06/06/22 08:00 AST 21 Units/L (15-37) 06/06/22 08:00 ALT 19 Units/L (12-78) 06/06/22 08:00 Alkaline Phosphatase 117 Units/L (46-116) H 06/06/22 08:00 Creatine Kinase 58 Units/L (39-308) 06/06/22 08:00 Troponin I High Sens 9.7 ng/L (4.0-60.0) 06/06/22 08:00 Total Protein 6.5 g/dL (6.4-8.2) 06/06/22 08:00 Albumin 3.4 g/dL (3.4-5.0) 06/06/22 08:00 Globulin 3.1 g/dL (2.5-4.5) 06/06/22 08:00 Albumin/Globulin Ratio 1.1 Ratio (1.1-2.1) 06/06/22 08:00 Amylase 84 Units/L (25-115) 06/06/22 08:00 Lipase 332 Units/L (73-393) 06/06/22 08:00 Opioid Opioid Risk Tool Age (Shane box if 16-45): No History of Preadolescent Sexual Abuse: No Total: 0 Total Score Risk Category: Low Risk Copyright: Cortez HUYNH predicting aberrant behaviors Discharge Plan Diagnosis Discharge Problem: Pneumonia, Abdominal pain, Bradycardia, Vertigo, Hypertension Discharge Plan Patient Disposition: ADMITTED INPATIENT Condition: Stable
[2022-06-06] MEDS ORDERED: APRESOLINE INJ 20 MG VIAL ONE (07:58)
[2022-06-06] MEDS ORDERED: APRESOLINE INJ 20 MG VIAL IVP ONE (08:00)
[2022-06-06] MEDS ORDERED: NS 1,000 ML IV 1,000 ML IV SCH (08:00)
--- NOTE | 2022-06-06 08:05 | EKG ---
Test Reason : BRADYCARDIC Blood Pressure : */* mmHG Vent. Rate : 40 BPM Atrial Rate : 40 BPM P-R Int : 178 ms QRS Dur : 102 ms QT Int : 504 ms P-R-T Axes : 17 44 43 degrees QTc Int : 410 ms Marked sinus bradycardia Abnormal ECG No previous ECGs available Confirmed by Jam Vera ([id number]) on 06/06/2022 8:28:26 AM Referred By: Confirmed By: Jam Vera
[2022-06-06 08:08] LABS: BASOPHILS % (AUTO) 0.2 % (0.2-1.0); EOSINOPHILS # (AUTO) 0.2 x10^3/uL (0.0-0.2); EOSINOPHILS % (AUTO) 1.7 % (0.9-2.9); HEMATOCRIT 37.8 % (42.0-54.0); HEMOGLOBIN 12.5 g/dL (13.5-18.0); LYMPHOCYTES # (AUTO) 1.2 X10^3/uL (1.3-2.9); LYMPHOCYTES % (AUTO) 10.9 % (21.0-51.0); MEAN CORPUSCULAR HEMOGLOBIN 29.9 pg (27.0-34.0); MEAN CORPUSCULAR HGB CONC 33.1 g/dL (33.0-35.0); MEAN CORPUSCULAR VOLUME 90.4 fL (80.0-100.0); MONOCYTES # (AUTO) 0.6 x10^3/uL (0.3-0.8); MONOCYTES % (AUTO) 4.9 % (0.0-13.0); NEUTROPHILS # (AUTO) 9.3 x10^3/uL (2.2-4.8); NEUTROPHILS % (AUTO) 82.3 % (42.0-75.0); RED BLOOD COUNT 4.18 X10^6/uL (4.7-6.0); RED CELL DISTRIBUTION WIDTH 14.2 % (11.6-16.5); WHITE BLOOD COUNT 11.3 X10^3/uL (3.6-10.0)
[2022-06-06 08:24] LABS: ALANINE AMINOTRANSFERASE 19 Units/L (12-78); ALBUMIN 3.4 g/dL (3.4-5.0); ALKALINE PHOSPHATASE 117 Units/L (46-116); AMYLASE 84 Units/L (25-115); ASPARTATE AMINO TRANSFERASE 21 Units/L (15-37); BLOOD UREA NITROGEN 20 mg/dL (7-18); CALCIUM 8.6 mg/dL (8.5-10.1); CARBON DIOXIDE 30.5 mmol/L (21-32); CHLORIDE 105 mmol/L (98-107); COR NA(FOR HYPERGLY) 145 mmol/L (136-145); CREATINE KINASE 58 Units/L (39-308); CREATININE 1.42 mg/dL (0.70-1.30); LIPASE 332 Units/L (73-393); SODIUM 142 mmol/L (136-145); TOTAL PROTEIN 6.5 g/dL (6.4-8.2); eGFR NON BLACK RACES 51 (>60)
--- NOTE | 2022-06-06 08:44 | CT ---
HISTORYdizzy, n/vSTUDYCT brain without IV contrastCOMPARISONNoneTECHNIQUEMultiple axial images of the brain were obtained without IV contrast. Dose reduction techniques including Automated Exposure Control (AEC) and adjustment of mA and kV were utilized.FINDINGSVisualized portions of the paranasal sinuses and mastoid air cells are clear. No calvarial fracture is seen. Normal variant nonfusion of the anterior ring of C1 is seen. 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 Moderate volume loss is seen in the brain with compensatory enlargement of the ventricular system. No evidence of acute CVA. Mild chronic small vessel ischemic changes are suspected.IMPRESSIONMild chronic small vessel ischemic changes are suspected without evidence of acute intracranial abnormality.Electronically signed by: Ronald Salazar (Jun 06, 2022 08:42:32)
[2022-06-06] MEDS ORDERED: COMPAZINE INJ IVP ONE (08:47)
[2022-06-06] MEDS ORDERED: COMPAZINE INJ ONE (08:47)
--- NOTE | 2022-06-06 08:52 | RAD ---
HISTORYDIDAPHORESIS, VOMITINGSTUDYCHEST x-ray, 1 VIEWCOMPARISONCT 09/04/2019FINDINGSThe trachea is midline. The cardiac silhouette is normal in size. Calcification is seen in the LAD coronary artery.There is focal opacity in the right mid to lower lung. This is probable pneumonia. Continued x-ray follow up to document resolution is recommended. No pneumothorax or pleural effusion is seen.No acute bony abnormality is seen.IMPRESSIONProbable right mid to lower lobe pneumonia. Continued x-ray follow up to document resolution is recommended.Electronically signed by: Ronald Salazar (Jun 06, 2022 08:50:52)
[2022-06-06] MEDS ORDERED: ROCEPHIN VIAL 1 GRAM 1 G in NS 100 ML IV 100 ML IV ONE (08:57)
[2022-06-06] MEDS ORDERED: ROCEPHIN VIAL 1 GRAM ONE (09:04)
[2022-06-06] MEDS ORDERED: NS 50 ML IV 50 ML IV ONE (09:05)
--- NOTE | 2022-06-06 09:09 | DR.DIZZY ---
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 Chief Complaint:: PT REPORTS WEAKNESS, CLAMMY , DIAPHORETIC , PT IS VOMITING UP YELLOW BILE PT DENIES ANY PAIN , PT STATES " HE JUST WOKE UP LIKE THIS THIS AM "..BR Self Treatment fo Chief Complaint: PT IS BRADYCARDIC , PT THIS IS CHRONIC COVID-19 Coronavirus risk:travel/contact w/high risk person: No Has patient experienced Coronavirus symptoms: No Source History Provided: Patient Mode of Arrival Mode of Arrival: Stretcher Timing Onset of Chief Complaint: 06/05/22 Symptom Onset: Known Onset of Symptoms Start Date: 06/06/22 Onset of Symptoms Start Time: 06:30 Location of Weakness Weakness Location: Generalized Associated signs and symptoms Associated Signs and Symptoms: Nausea PMH PMH Past Medical History: Yes Past Medical History: Coronary Artery Disease, Hypertension and [place] Past Surgical History: Yes Surgical History: Angioplasty/Stents and Ortho Surgery Family History History of Family Medical Conditions: Yes Family Medical History: [place] Social History Does patient currently use any type of tobacco product: No Have you used tobacco products in the last 12 months: No Type of Tobacco Use: None Does any household member use tobacco: No Alcohol Use: None Do you use any recreational Drugs:: No Lives With: Family Lives Where: Home Travel Risk Coronavirus risk:travel/contact w/high risk person: No Has patient experienced Coronavirus symptoms: No Infectious screening In the last 2 months have you had wt loss of >10#?: NO Have you had fever, night sweats or hemotysis?: No Have you traveled outside the country in the last 6 months?: No Isolation: Standard PE Vital Signs Vitals: Temperature 98.2 F Pulse Rate 50 Respiratory Rate 23 Blood Pressure [Left Arm] 153/69 Blood Pressure 160/68 O2 Sat by Pulse Oximetry 96 ROR Labs Reviewed Result Diagrams: 06/06/22 08:00 06/06/22 08:00 Laboratory: WBC 11.3 X10^3/uL (3.6-10.0) H 06/06/22 08:00 RBC 4.18 X10^6/uL (4.7-6.0) L 06/06/22 08:00 Hgb 12.5 g/dL (13.5-18.0) L 06/06/22 08:00 Hct 37.8 % (42.0-54.0) L 06/06/22 08:00 MCV 90.4 fL (80.0-100.0) 06/06/22 08:00 MCH 29.9 pg (27.0-34.0) 06/06/22 08:00 MCHC 33.1 g/dL (33.0-35.0) 06/06/22 08:00 RDW 14.2 % (11.6-16.5) 06/06/22 08:00 Plt Count 153 X10^3/uL (150.0-450.0) 06/06/22 08:00 MPV 9.0 fL (7.4-11.0) 06/06/22 08:00 Neut % (Auto) 82.3 % (42.0-75.0) H 06/06/22 08:00 Lymph % (Auto) 10.9 % (21.0-51.0) L 06/06/22 08:00 [place] % (Auto) 4.9 % (0.0-13.0) 06/06/22 08:00 Eos % (Auto) 1.7 % (0.9-2.9) 06/06/22 08:00 Baso % (Auto) 0.2 % (0.2-1.0) 06/06/22 08:00 Neut # (Auto) 9.3 x10^3/uL (2.2-4.8) H 06/06/22 08:00 Lymph # (Auto) 1.2 X10^3/uL (1.3-2.9) L 06/06/22 08:00 [place] # (Auto) 0.6 x10^3/uL (0.3-0.8) 06/06/22 08:00 Eos # (Auto) 0.2 x10^3/uL (0.0-0.2) 06/06/22 08:00 Baso # (Auto) 0.0 X10^3/uL (0.0-0.1) 06/06/22 08:00 Absolute Nucleated RBC 0.0 /100WBC 06/06/22 08:00 Sodium 142 mmol/L (136-145) 06/06/22 08:00 Corrected Sodium 145 mmol/L (136-145) 06/06/22 08:00 Potassium 4.5 mmol/L (3.5-5.1) 06/06/22 08:00 Chloride 105 mmol/L (98-107) 06/06/22 08:00 Carbon Dioxide 30.5 mmol/L (21-32) 06/06/22 08:00 BUN 20 mg/dL (7-18) H 06/06/22 08:00 Creatinine 1.42 mg/dL (0.70-1.30) H 06/06/22 08:00 Est GFR (MDRD) Af Amer > 60 (>60) 06/06/22 08:00 Est GFR (MDRD) Non-Af 51 (>60) L 06/06/22 08:00 Glucose 215 mg/dL (65-99) H 06/06/22 08:00 Calcium 8.6 mg/dL (8.5-10.1) 06/06/22 08:00 Corrected Calcium TNP 06/06/22 08:00 Total Bilirubin 0.60 mg/dL (0.2-1.0) 06/06/22 08:00 AST 21 Units/L (15-37) 06/06/22 08:00 ALT 19 Units/L (12-78) 06/06/22 08:00 Alkaline Phosphatase 117 Units/L (46-116) H 06/06/22 08:00 Creatine Kinase 58 Units/L (39-308) 06/06/22 08:00 Troponin I High Sens 9.7 ng/L (4.0-60.0) 06/06/22 08:00 Total Protein 6.5 g/dL (6.4-8.2) 06/06/22 08:00 Albumin 3.4 g/dL (3.4-5.0) 06/06/22 08:00 Globulin 3.1 g/dL (2.5-4.5) 06/06/22 08:00 Albumin/Globulin Ratio 1.1 Ratio (1.1-2.1) 06/06/22 08:00 Amylase 84 Units/L (25-115) 06/06/22 08:00 Lipase 332 Units/L (73-393) 06/06/22 08:00 Opioid Opioid Risk Tool Age (Shane box if 16-45): No History of Preadolescent Sexual Abuse: No Total: 0 Total Score Risk Category: Low Risk Copyright: [place] HUYNH predicting aberrant behaviors Discharge Plan Diagnosis Discharge Problem: Pneumonia, Abdominal pain, Bradycardia, Vertigo, Hypertension Discharge Plan Patient Disposition: 09 ADMITTED INPATIENT Condition: Stable Orders to Discharge Patient Discharge Orders: Transfer (Routine); Ordered 06/06/22 Ordered By: ROSITA COOMBS
[2022-06-06] MEDS ORDERED: REGLAN INJ 10 MG VIAL IVP STA (10:26)
[2022-06-06] MEDS ORDERED: REGLAN INJ 10 MG VIAL ONE (10:28)
--- NOTE | 2022-06-06 10:43 | CT ---
HISTORYABDOMINAL PAIN, N/VSTUDYCT abdomen pelvis without IV contrastCOMPARISONReport of prior CT 11/11/2018, images are not availableTECHNIQUEMultiple axial images of the abdomen and pelvis were obtained from the lung bases to the pubic symphysis without the administration of IV contrast. Dose reduction techniques including Automated Exposure Control (AEC) and adjustment of mA and kV were utilized.FINDINGSThe visualized portions of the lung bases are unremarkable.Mild splenomegaly is present as described previously. No hepatic abnormality is seen.Prior cholecystectomy. No biliary ductal dilation.No pancreatic abnormality is seen.The adrenal glands appear normal.Perinephric streaky densities are seen which could be associated with poor renal function. No nephrolithiasis or hydronephrosis is seen. Ureters and bladder appear normal.Rectum is distended to 7.1 cm with soft fecal material. A few colonic diverticula are seen without evidence of diverticulitis. Normal appendix is seen. Cecum and the appendix are in the left side of the abdomen. There is a small hiatus hernia.Prostate gland is normal in size.Abdominal aorta is normal in size.No suspicious lymphadenopathy.No free intraperitoneal air or fluid is seen.Bones are osteopenic. Old healed right lower rib fractures are seen. No lumbar compression fracture is seen.IMPRESSIONModerate constipation in the rectum with little retained fecal material elsewhere in the colon.Electronically signed by: Ronald Salazar (Jun 06, 2022 10:41:42)
[2022-06-06] MEDS ORDERED: ANTIVERT TAB 25 MG PO ONE (11:52)
[2022-06-06] MEDS ORDERED: ANTIVERT TAB 25 MG ONE (11:53)
[2022-06-06] MEDS ORDERED: ANTIVERT TAB 25 MG PO PRN (12:28)
[2022-06-06] MEDS: ROCEPHIN VIAL 1 GRAM 1 G in NS 100 ML IV 100 ML IV SCH (12:39)
[2022-06-06 13:02] LABS: BILIRUBIN,URINE NEGATIVE (NEGATIVE); BLOOD/HEMOGLOBIN,URINE 1+ (NEGATIVE); GLUCOSE, URINE 4+ (NEGATIVE); KETONES,URINE 3+ (NEGATIVE); LEUKOCYTE ESTERASE ,URINE 1+ (NEGATIVE); NITRITES,URINE NEGATIVE (NEGATIVE); PROTEIN,URINE 3+ (NEGATIVE); UROBILINOGEN,URINE NORMAL (NORMAL)
[2022-06-06 13:19] LABS: APPEARANCE,URINE HAZY (CLEAR); BACTERIA,URINE TRACE /HPF (NEGATIVE); COLOR,URINE YELLOW (YELLOW); SQUAMOUS EPITHELIAL CELL,UR FEW /HPF (NEGATIVE)
[2022-06-06] MEDS: NS 1,000 ML IV 1,000 ML IV SCH ×2 (13:45→23:37)
[2022-06-06] MEDS: DUONEB 0.5 MG/3 MG (3 mL) NEB SCH ×2 (15:43→21:00)
[2022-06-06] MEDS ORDERED: DUONEB 0.5 MG/3 MG (3 mL) NEB ONE (15:44)
[2022-06-06] MEDS: CATAPRES TAB 0.1 MG PO PRN (16:25)
[2022-06-06] MEDS: PULMICORT NEB TX 0.5 MG NEB SCH (21:00)
[2022-06-07] MEDS: DUONEB 0.5 MG/3 MG (3 mL) NEB SCH ×6 (01:00→21:06)
[2022-06-07] MEDS: NS 1,000 ML IV 1,000 ML IV SCH ×2 (01:38→16:44)
[2022-06-07 05:15] LABS: BASOPHILS # (AUTO) 0.1 X10^3/uL (0.0-0.1); BASOPHILS % (AUTO) 0.5 % (0.2-1.0); EOSINOPHILS # (AUTO) 0.1 x10^3/uL (0.0-0.2); EOSINOPHILS % (AUTO) 0.7 % (0.9-2.9); HEMATOCRIT 32.1 % (42.0-54.0); HEMOGLOBIN 11.1 g/dL (13.5-18.0); LYMPHOCYTES # (AUTO) 1.6 X10^3/uL (1.3-2.9); LYMPHOCYTES % (AUTO) 16.4 % (21.0-51.0); MEAN CORPUSCULAR HGB CONC 34.5 g/dL (33.0-35.0); MEAN CORPUSCULAR VOLUME 89.8 fL (80.0-100.0); MEAN PLATELET VOLUME 9.5 fL (7.4-11.0); MONOCYTES # (AUTO) 0.8 x10^3/uL (0.3-0.8); MONOCYTES % (AUTO) 8.5 % (0.0-13.0); NEUTROPHILS # (AUTO) 7.3 x10^3/uL (2.2-4.8); NEUTROPHILS % (AUTO) 73.9 % (42.0-75.0); RED BLOOD COUNT 3.57 X10^6/uL (4.7-6.0); RED CELL DISTRIBUTION WIDTH 14.7 % (11.6-16.5); WHITE BLOOD COUNT 9.9 X10^3/uL (3.6-10.0)
[2022-06-07 05:22] LABS: ALBUMIN 2.9 g/dL (3.4-5.0); CALCIUM 8.1 mg/dL (8.5-10.1); CARBON DIOXIDE 27.7 mmol/L (21-32); CREATININE 1.97 mg/dL (0.70-1.30); MAGNESIUM 1.3 mg/dL (2.0-2.9); TOTAL PROTEIN 5.6 g/dL (6.4-8.2)
[2022-06-07] MEDS: PULMICORT NEB TX 0.5 MG NEB SCH ×2 (08:37→21:06)
[2022-06-07] MEDS: CATAPRES TAB 0.1 MG PO PRN (09:06)
[2022-06-07] MEDS: ROCEPHIN VIAL 1 GRAM 1 G in NS 100 ML IV 100 ML IV SCH (09:08)
[2022-06-07] MEDS ORDERED: POTASSIUM CHLORIDE LIQ 20 MEQ UDC PO PRN (16:06)
[2022-06-07] MEDS ORDERED: POTASSIUM CHL 60 MEQ/NS 0.45% 500 ML IV PRN (16:06)
[2022-06-07] MEDS ORDERED: POTASSIUM CHL 40 MEQ/NS 0.45% 500 ML IV PRN (16:06)
[2022-06-07] MEDS ORDERED: K-RIDER 10 MEQ/NS 100 ML 10 MEQ/100 ML BAG IV PRN (16:06)
[2022-06-07] MEDS ORDERED: MICRO K EXTEN CAP 10 MEQ PO PRN (16:06)
[2022-06-07] MEDS ORDERED: K-DUR TAB 20 MEQ PO PRN (16:06)
[2022-06-07] MEDS ORDERED: KLOR-CON PO PRN (16:06)
[2022-06-07] MEDS: PLAVIX PO SCH (16:34)
[2022-06-07] MEDS: ASPIRIN 81 MG CHEWTAB PO SCH (16:35)
[2022-06-07] MEDS: MAGNESIUM SULFATE 1 GRAM/100 mL PREMIX 1 G/100 ML BAG IV PRN ×4 (16:56→23:00)
[2022-06-07] MEDS ORDERED: SNACK - Diabetic Appropriate PO SCH (20:00)
[2022-06-07] MEDS: GLUCOTROL PO SCH ×2 (20:37→20:38)
[2022-06-07] MEDS ORDERED: SITAGLIPTIN PHOS METFORMIN PO SCH (21:00)
[2022-06-07] MEDS ORDERED: LIPITOR TAB 40 MG PO SCH (21:00)
[2022-06-07] MEDS ORDERED: COZAAR PO SCH (21:00)
--- NOTE | 2022-06-07 22:59 | CT ---
EXAM: CHEST CT WITHOUT INTRAVENOUS CONTRASTHISTORY: Pneumonia follow-up.TECHNIQUE: Spiral axial CT images are obtained through the chest without the administration of intravenous contrast. Additional sagittal and coronal reformatted images are reconstructed.DOSIMETRY: Total DLP 217.26 mGycm; CTDI 6.08 mGyCOMPARISON: CXR dated June 06, 2022.FINDINGS:CARDIOVASCULAR: There is severe aortic atherosclerosis. The heart size is within normal limits. No pericardial effusion is seen. There is severe aortic atherosclerosis, with an approximately 4.2 cm ascending thoracic aortic aneurysm; no evidence for rupture.MEDIASTINUM AND RAFAELA: No mass lesion, lymphadenopathy, or abnormal fluid collection is seen.LUNGS: There are mild patchy subpleural parenchymal opacities in the posterior lung bases in keeping with mild bibasilar atelectasis, but cannot rule out small pneumonic infiltrates in the appropriate clinical setting. Axial image 46?59, series 7. There is no lung mass, lung nodule, or endobronchial obstructing lesion seen. No pleural effusion or pneumothorax is evident.CHEST WALL: There are no chest wall lesions seen. 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 The visualized bony structures are otherwise within normal limits. No axillary lymphadenopathy is noted.UPPER ABDOMEN: Limited views through the upper abdomen demonstrate no gross acute abnormality.IMPRESSION:1. Mild patchy subpleural parenchymal opacities in the posterior lung bases in keeping with mild bibasilar atelectasis, but cannot rule out small pneumonic infiltrates in the appropriate clinical setting. Axial image 46?59, series 7.2. Severe aortic atherosclerosis.3. Severe aortic atherosclerosis, with an approximately 4.2 cm ascending thoracic aortic aneurysm; no evidence for rupture.4. Multilevel DDD is seen throughout the middle and distal thoracic spine, marked by prominent anterior marginal osteophytosis.5. Otherwise unremarkable chest CT without contrast.Electronically signed by: India Girard (Jun 07, 2022 22:58:09)
[2022-06-08] MEDS: NS 1,000 ML IV 1,000 ML IV SCH ×2 (04:21→09:58)
[2022-06-08] MEDS: DUONEB 0.5 MG/3 MG (3 mL) NEB SCH ×4 (06:00→11:42)
[2022-06-08 06:39] LABS: BASOPHILS % (AUTO) 0.5 % (0.2-1.0); EOSINOPHILS # (AUTO) 0.3 x10^3/uL (0.0-0.2); EOSINOPHILS % (AUTO) 4.1 % (0.9-2.9); HEMATOCRIT 32.2 % (42.0-54.0); HEMOGLOBIN 11.1 g/dL (13.5-18.0); LYMPHOCYTES # (AUTO) 1.1 X10^3/uL (1.3-2.9); LYMPHOCYTES % (AUTO) 16.4 % (21.0-51.0); MEAN CORPUSCULAR HEMOGLOBIN 31.1 pg (27.0-34.0); MEAN CORPUSCULAR HGB CONC 34.5 g/dL (33.0-35.0); MEAN CORPUSCULAR VOLUME 90.1 fL (80.0-100.0); MEAN PLATELET VOLUME 9.3 fL (7.4-11.0); MONOCYTES # (AUTO) 0.5 x10^3/uL (0.3-0.8); MONOCYTES % (AUTO) 8.4 % (0.0-13.0); NEUTROPHILS # (AUTO) 4.5 x10^3/uL (2.2-4.8); NEUTROPHILS % (AUTO) 70.6 % (42.0-75.0); RED BLOOD COUNT 3.57 X10^6/uL (4.7-6.0); RED CELL DISTRIBUTION WIDTH 14.7 % (11.6-16.5); WHITE BLOOD COUNT 6.4 X10^3/uL (3.6-10.0)
[2022-06-08 06:48] LABS: ALANINE AMINOTRANSFERASE 17 Units/L (12-78); ALKALINE PHOSPHATASE 95 Units/L (46-116); ASPARTATE AMINO TRANSFERASE 16 Units/L (15-37); BLOOD UREA NITROGEN 17 mg/dL (7-18); CALCIUM 7.9 mg/dL (8.5-10.1); CARBON DIOXIDE 26.7 mmol/L (21-32); CHLORIDE 110 mmol/L (98-107); COR CA(FOR HYPOALB) 8.7 mg/dL (8.5-10.1); COR NA(FOR HYPERGLY) 145 mmol/L (136-145); CREATININE 1.21 mg/dL (0.70-1.30); MAGNESIUM 1.9 mg/dL (2.0-2.9); SODIUM 144 mmol/L (136-145); eGFR NON BLACK RACES > 60 (>60)
[2022-06-08] MEDS ORDERED: GLUCOPHAGE ONE (08:04)
[2022-06-08] MEDS: PLAVIX PO SCH (08:09)
[2022-06-08] MEDS: ASPIRIN 81 MG CHEWTAB PO SCH ×2 (08:09→08:16)
[2022-06-08] MEDS: CATAPRES TAB 0.1 MG PO PRN (08:12)
[2022-06-08] MEDS: ROCEPHIN VIAL 1 GRAM 1 G in NS 100 ML IV 100 ML IV SCH (08:13)
[2022-06-08] MEDS ORDERED: GLUCOPHAGE PO SCH (09:00)
[2022-06-08] MEDS ORDERED: JANUVIA PO SCH (09:00)
[2022-06-08] MEDS: PULMICORT NEB TX 0.5 MG NEB SCH (09:04)
[2022-06-08] MEDS: MAGNESIUM SULFATE 1 GRAM/100 mL PREMIX 1 G/100 ML BAG IV PRN ×2 (10:04→11:47)
[2022-06-08 12:27] VITALS: BP 158/60
[2022-06-08] MEDS ORDERED: LOVENOX INJ 40 MG SYR SC SCH (13:00)
[2022-06-08] MEDS ORDERED: ASPIRIN 81 MG CHEWTAB PO SCH (21:00)
--- NOTE | 2022-06-09 08:09 | W.DIS.FURT ---
Summary of Discharge Discharge Summary of Date Date of Exam: 06/08/22 Admission Date Date of Admission: 06/06/22 Admission Diagnosis Patient Problems (Updated 06/06/22 @ 10:16 by ROSITA COOMBS) Pneumonia (Acute) J18.9 Abdominal pain (Acute) R10.9 Bradycardia (Acute) R00.1 Vertigo (Acute) R42 Hypertension (Acute) I10 Hospital Course: Pt is a 81 year old male admitted with initial symptoms of vertigo and abdominal pain. It was determined that patient had acute cystitis. He received antibiotics IV Rocephin and a dose of solumedrol. Labs/imaging:Wbc 6.4, Hgb 11.1, Plt 127, Na 144, K 4.4, Creatinine 1.21, Glucose 159, Urine and blood culture no growth to date. CT head and CTAP no acute findings. Pt responded well to treatments. He was discharged in stable condition. Rx cefdinir for cystitis. A CT chest did reveal Severe aortic atherosclerosis, with an approximately 4.2 cm ascending thoracic aortic aneurysm. Pt is unaware of aortic aneurysm. He is followed by cardiology-Dr Vera and case management will arrange for outpatient follow up with cardiology. Pt instructed to follow up with pcp in 1 week. Vital Signs: Vital Signs (72 hours) 06/06/22 08:15 06/06/22 08:30 06/06/22 08:31 Temperature Pulse Rate 52 L 55 L 55 L Pulse Rate [Apical] Respiratory Rate 18 21 21 Blood Pressure Blood Pressure [Left Arm] Blood Pressure [Right Arm] O2 Sat by Pulse Oximetry 92 L 89 L 93 L Oxygen Delivery Method 06/06/22 08:31 06/06/22 08:45 06/06/22 09:00 Temperature Pulse Rate 53 L 54 L Pulse Rate [Apical] Respiratory Rate 27 H 25 H Blood Pressure 160/74 Blood Pressure [Left Arm] Blood Pressure [Right Arm] O2 Sat by Pulse Oximetry 99 94 L Oxygen Delivery Method 06/06/22 09:01 06/06/22 09:01 06/06/22 09:15 Temperature Pulse Rate 55 L 50 L Pulse Rate [Apical] Respiratory Rate 27 H 18 Blood Pressure 144/65 Blood Pressure [Left Arm] Blood Pressure [Right Arm] O2 Sat by Pulse Oximetry 94 L 94 L Oxygen Delivery Method 06/06/22 09:30 06/06/22 09:31 06/06/22 09:31 Temperature Pulse Rate 50 L 49 L Pulse Rate [Apical] Respiratory Rate 17 18 Blood Pressure 187/74 Blood Pressure [Left Arm] Blood Pressure [Right Arm] O2 Sat by Pulse Oximetry 96 96 Oxygen Delivery Method 06/06/22 09:45 06/06/22 10:00 06/06/22 10:01 Temperature Pulse Rate 51 L 53 L 49 L Pulse Rate [Apical] Respiratory Rate 20 22 21 Blood Pressure Blood Pressure [Left Arm] Blood Pressure [Right Arm] O2 Sat by Pulse Oximetry 97 96 96 Oxygen Delivery Method 06/06/22 10:01 06/06/22 10:15 06/06/22 10:30 Temperature Pulse Rate 50 L 56 L Pulse Rate [Apical] Respiratory Rate 20 34 H Blood Pressure 171/74 Blood Pressure [Left Arm] Blood Pressure [Right Arm] O2 Sat by Pulse Oximetry 96 95 Oxygen Delivery Method 06/06/22 10:31 06/06/22 10:31 06/06/22 10:45 Temperature Pulse Rate 56 L 51 L Pulse Rate [Apical] Respiratory Rate 23 18 Blood Pressure 182/76 Blood Pressure [Left Arm] Blood Pressure [Right Arm] O2 Sat by Pulse Oximetry 95 96 Oxygen Delivery Method 06/06/22 11:00 06/06/22 11:01 06/06/22 11:01 Temperature Pulse Rate 50 L 49 L Pulse Rate [Apical] Respiratory Rate 27 H 24 Blood Pressure 216/82 Blood Pressure [Left Arm] Blood Pressure [Right Arm] O2 Sat by Pulse Oximetry 96 95 Oxygen Delivery Method 06/06/22 11:15 06/06/22 11:30 06/06/22 11:31 Temperature Pulse Rate 50 L 51 L 50 L Pulse Rate [Apical] Respiratory Rate 17 23 23 Blood Pressure Blood Pressure [Left Arm] Blood Pressure [Right Arm] O2 Sat by Pulse Oximetry 96 95 96 Oxygen Delivery Method 06/06/22 11:31 06/06/22 11:45 06/06/22 11:46 Temperature Pulse Rate 51 L Pulse Rate [Apical] Respiratory Rate 18 Blood Pressure 160/68 Blood Pressure [Left Arm] Blood Pressure [Right Arm] O2 Sat by Pulse Oximetry 95 Oxygen Delivery Method Room Air 06/06/22 12:05 06/06/22 13:26 06/06/22 15:43 Temperature 98.4 F Pulse Rate 62 Pulse Rate [Apical] 57 L Respiratory Rate 18 Blood Pressure Blood Pressure [Left Arm] 194/80 Blood Pressure [Right Arm] O2 Sat by Pulse Oximetry 94 L 96 Oxygen Delivery Method Room Air Room Air 06/06/22 16:00 06/06/22 17:00 06/06/22 19:00 Temperature 99.6 F Pulse Rate Pulse Rate [Apical] 74 Respiratory Rate 18 Blood Pressure Blood Pressure [Left Arm] 214/86 139/65 Blood Pressure [Right Arm] O2 Sat by Pulse Oximetry 96 Oxygen Delivery Method Room Air Room Air 06/06/22 20:00 06/06/22 21:00 06/06/22 21:00 Temperature 98 F Pulse Rate 74 Pulse Rate [Apical] 66 Respiratory Rate 20 Blood Pressure Blood Pressure [Left Arm] Blood Pressure [Right Arm] 147/67 O2 Sat by Pulse Oximetry 93 L 94 L Oxygen Delivery Method Room Air Room Air 06/07/22 00:00 06/07/22 04:00 06/07/22 01:00 Temperature 97.9 F 97.8 F Pulse Rate 74 Pulse Rate [Apical] 65 60 Respiratory Rate 20 20 Blood Pressure Blood Pressure [Left Arm] Blood Pressure [Right Arm] 139/66 151/69 O2 Sat by Pulse Oximetry 95 96 94 L Oxygen Delivery Method Room Air Room Air 06/07/22 05:00 06/07/22 08:37 06/07/22 08:37 Temperature Pulse Rate 72 73 Pulse Rate [Apical] Respiratory Rate Blood Pressure Blood Pressure [Left Arm] Blood Pressure [Right Arm] O2 Sat by Pulse Oximetry 95 99 Oxygen Delivery Method Room Air 06/07/22 08:00 06/07/22 07:00 06/07/22 10:30 Temperature 98.1 F Pulse Rate Pulse Rate [Apical] 61 62 Respiratory Rate 18 Blood Pressure Blood Pressure [Left Arm] Blood Pressure [Right Arm] 152/67 O2 Sat by Pulse Oximetry 96 Oxygen Delivery Method Room Air Room Air 06/07/22 11:33 06/07/22 16:00 06/07/22 19:00 Temperature 97.8 F 97.6 F Pulse Rate Pulse Rate [Apical] 61 59 L Respiratory Rate 18 18 Blood Pressure Blood Pressure [Left Arm] Blood Pressure [Right Arm] 178/77 178/79 O2 Sat by Pulse Oximetry 96 96 Oxygen Delivery Method Room Air Room Air Room Air 06/07/22 20:00 06/07/22 21:06 06/07/22 21:06 Temperature 98.0 F Pulse Rate 53 L Pulse Rate [Apical] 59 L Respiratory Rate 20 Blood Pressure Blood Pressure [Left Arm] Blood Pressure [Right Arm] 170/74 O2 Sat by Pulse Oximetry 95 98 Oxygen Delivery Method Room Air Room Air 06/07/22 23:48 06/08/22 03:46 06/08/22 08:29 Temperature 97.8 F 98.4 F Pulse Rate Pulse Rate [Apical] 66 55 L Respiratory Rate 18 20 Blood Pressure Blood Pressure [Left Arm] 170/58 165/76 Blood Pressure [Right Arm] O2 Sat by Pulse Oximetry 98 96 Oxygen Delivery Method Room Air Room Air Room Air 06/08/22 09:04 06/08/22 09:04 06/08/22 08:00 Temperature 97.8 F Pulse Rate 68 Pulse Rate [Apical] 73 Respiratory Rate 18 Blood Pressure Blood Pressure [Left Arm] Blood Pressure [Right Arm] 200/85 O2 Sat by Pulse Oximetry 98 96 Oxygen Delivery Method Room Air Room Air 06/08/22 10:07 06/08/22 12:00 Temperature 97.4 F L Pulse Rate Pulse Rate [Apical] 64 Respiratory Rate 20 Blood Pressure Blood Pressure [Left Arm] Blood Pressure [Right Arm] 132/62 158/60 O2 Sat by Pulse Oximetry 100 Oxygen Delivery Method Room Air Labs: Laboratory Last Values WBC 6.4 X10^3/uL (3.6-10.0) 06/08/22 05:47 RBC 3.57 X10^6/uL (4.7-6.0) L 06/08/22 05:47 Hgb 11.1 g/dL (13.5-18.0) L 06/08/22 05:47 Hct 32.2 % (42.0-54.0) L 06/08/22 05:47 MCV 90.1 fL (80.0-100.0) 06/08/22 05:47 MCH 31.1 pg (27.0-34.0) 06/08/22 05:47 MCHC 34.5 g/dL (33.0-35.0) 06/08/22 05:47 RDW 14.7 % (11.6-16.5) 06/08/22 05:47 Plt Count 127 X10^3/uL (150.0-450.0) L 06/08/22 05:47 MPV 9.3 fL (7.4-11.0) 06/08/22 05:47 Neut % (Auto) 70.6 % (42.0-75.0) 06/08/22 05:47 Lymph % (Auto) 16.4 % (21.0-51.0) L 06/08/22 05:47 [place] % (Auto) 8.4 % (0.0-13.0) 06/08/22 05:47 Eos % (Auto) 4.1 % (0.9-2.9) H 06/08/22 05:47 Baso % (Auto) 0.5 % (0.2-1.0) 06/08/22 05:47 Neut # (Auto) 4.5 x10^3/uL (2.2-4.8) 06/08/22 05:47 Lymph # (Auto) 1.1 X10^3/uL (1.3-2.9) L 06/08/22 05:47 [place] # (Auto) 0.5 x10^3/uL (0.3-0.8) 06/08/22 05:47 Eos # (Auto) 0.3 x10^3/uL (0.0-0.2) H 06/08/22 05:47 Baso # (Auto) 0.0 X10^3/uL (0.0-0.1) 06/08/22 05:47 Absolute Nucleated RBC 0.0 /100WBC 06/08/22 05:47 Sodium 144 mmol/L (136-145) 06/08/22 05:47 Corrected Sodium 145 mmol/L (136-145) 06/08/22 05:47 Potassium 4.4 mmol/L (3.5-5.1) 06/08/22 05:47 Chloride 110 mmol/L (98-107) H 06/08/22 05:47 Carbon Dioxide 26.7 mmol/L (21-32) 06/08/22 05:47 BUN 17 mg/dL (7-18) 06/08/22 05:47 Creatinine 1.21 mg/dL (0.70-1.30) 06/08/22 05:47 Est GFR (MDRD) Af Amer > 60 (>60) 06/08/22 05:47 Est GFR (MDRD) Non-Af > 60 (>60) 06/08/22 05:47 Glucose 159 mg/dL (65-99) H 06/08/22 05:47 POC Glucose (mg/dL) 184 mg/dL (65-99) H 06/08/22 11:00 Calcium 7.9 mg/dL (8.5-10.1) L 06/08/22 05:47 Corrected Calcium 8.7 mg/dL (8.5-10.1) 06/08/22 05:47 Magnesium 1.9 mg/dL (2.0-2.9) L 06/08/22 05:47 Total Bilirubin 0.50 mg/dL (0.2-1.0) 06/08/22 05:47 AST 16 Units/L (15-37) 06/08/22 05:47 ALT 17 Units/L (12-78) 06/08/22 05:47 Alkaline Phosphatase 95 Units/L (46-116) 06/08/22 05:47 Creatine Kinase 58 Units/L (39-308) 06/06/22 08:00 Troponin I High Sens 26.3 ng/L (4.0-60.0) 06/06/22 20:10 Total Protein 6.0 g/dL (6.4-8.2) L 06/08/22 05:47 Albumin 3.0 g/dL (3.4-5.0) L 06/08/22 05:47 Globulin 3.0 g/dL (2.5-4.5) 06/08/22 05:47 Albumin/Globulin Ratio 1.0 Ratio (1.1-2.1) L 06/08/22 05:47 Amylase 84 Units/L (25-115) 06/06/22 08:00 Lipase 332 Units/L (73-393) 06/06/22 08:00 Specimen Type Clean catch urine 06/06/22 12:50 Urine Color Yellow (YELLOW) 06/06/22 12:50 Urine Appearance Hazy (CLEAR) 06/06/22 12:50 Urine pH 5.0 (5.0 - 8.0) 06/06/22 12:50 Ur Specific [place] 1.015 (1.000-1.030) 06/06/22 12:50 Urine Protein 3+ (NEGATIVE) 06/06/22 12:50 Urine Glucose (UA) 4+ (NEGATIVE) 06/06/22 12:50 Urine Ketones 3+ (NEGATIVE) 06/06/22 12:50 Urine Blood 1+ (NEGATIVE) 06/06/22 12:50 Urine Nitrite Negative (NEGATIVE) 06/06/22 12:50 Urine Bilirubin Negative (NEGATIVE) 06/06/22 12:50 Urine Urobilinogen Normal (NORMAL) 06/06/22 12:50 Ur Leukocyte Esterase 1+ (NEGATIVE) 06/06/22 12:50 Urine RBC 3-5 /HPF (0-3) A 06/06/22 12:50 Urine WBC 10-20 /HPF (0-5) A 06/06/22 12:50 Ur Squamous Epith Cells Few /HPF (NEGATIVE) 06/06/22 12:50 Urine Bacteria Trace /HPF (NEGATIVE) 06/06/22 12:50 Urine Mucus Few /HPF (NEGATIVE) 06/06/22 12:50 Ur Culture Indicated? Yes/culture set up 06/06/22 12:50 Reason For Visit: PNEUMONIA,VERTIGO,HYPERTENSION,BRADYCARDIA, Discharge Date Discharge Date: 06/08/22 Discharge Diagnosis All Active Problems (Updated 06/06/22 @ 10:16 by ROSITA COOMBS) Acute labyrinthitis (Acute) Abdominal pain (Acute) Cholelithiasis (Acute) Right inguinal hernia (Acute) Hyperglycemia (Acute) UTI (urinary tract infection) (Acute) Decreased hearing (Acute) Degenerative disc disease, lumbar (Acute) Chronic kidney disease (Acute) Chest pain (Acute) Chest pain (Acute) Pneumonia (Acute) Abdominal pain (Acute) Bradycardia (Acute) Vertigo (Acute) Hypertension (Acute) Plan of Treatment: Continue with present treatment and follow up plan. Pt is to keep follow up appointment as instructed and take medications as ordered. Discharge Medications Discharge Medications: No Known Drug Allergies Allergy (Verified 02/01/18 12:19) CONTINUE taking the following medications alendronate 70 mg tablet 1 tab PO Q2W 06/06/22 [History] aspirin 81 mg chewable tablet 81 mg PO QHS 06/06/22 [History] atorvastatin 40 mg tablet 1 tab PO QAM 06/06/22 [History] clopidogrel 75 mg tablet 1 tab PO QDAY 06/06/22 [History] doxazosin 8 mg tablet 1 tab PO HS 06/06/22 [History] losartan 100 mg tablet 1 tab PO HS 06/06/22 [History] sitagliptin phosphate 50 mg-metformin 1,000 mg tablet (Janumet) 1 tab PO BID 06/06/22 [History] testosterone enanthate 200 mg/mL intramuscular oil 200 mg IM Q2W 06/06/22 [History] New Prescriptions cefdinir 300 mg capsule 300 mg PO BID #14 caps 06/08/22 [Rx] Discharge Disposition Discharge Disposition: Home Discharge Condition: Stable Discharge Plan Discharge Plan Hospital Course: Pt is a 81 year old male admitted with initial symptoms of vertigo and abdominal pain. It was determined that patient had acute cystitis. He received antibioti cs IV Rocephin and a dose of solumedrol. Labs/imaging:Wbc 6.4, Hgb 11.1, Plt 127, Na 144, K 4.4, Creatinine 1.21, Glucose 159, Urine and blood culture no growth to date. CT head and CTAP no acute findings. Pt responded well to treatments. He was discharged in stable condition. Rx cefdinir for cystitis. A CT chest did reveal Severe aortic atherosclerosis, with an approximately 4.2 cm ascending thoracic aortic aneurysm. Pt is unaware of aortic aneurysm. He is followed by cardiology-Dr Vera and case management will arrange for outpatient follow up with cardiology. Pt instructed to follow up with pcp in 1 week. Patient Disposition: HOME, SELF-CARE Condition: Stable Health Concerns: Post Hospitalization: new medications and changes needed to prevent readmission or further decline. Pt educated and given instructions on all concerns. Care Plan Goals: Problem: Pain/Alteration in Comfort Goal: Improve/ Resolve Pain; Achieve Pain Tolerance Instructions: Take pain medications as prescribed. Contact your primary care provider if your pain is unrelieved or worsens. Follow up with primary care provider as directed. Plan of Treatment: Continue with present treatment and follow up plan. Pt is to keep follow up appointment as instructed and take medications as ordered. Prescriptions: New cefdinir 300 mg Capsule 300 mg PO BID Qty: 14 0RF Continued atorvastatin 40 mg tablet 1 tab PO QAM alendronate 70 mg tablet 1 tab PO Q2W clopidogrel 75 mg tablet 1 tab PO QDAY losartan 100 mg tablet 1 tab PO HS doxazosin 8 mg tablet 1 tab PO HS aspirin 81 mg Tablet,Chewable 81 mg PO QHS Janumet 50-1,000 mg Tablet 1 tab PO BID testosterone enanthate 200 mg/mL Oil 200 mg IM Q2W Rx Instructions: as a single dose Follow ups/Referrals Follow ups/Referrals: Jam Vera [STAFF PHYSICIAN] - 1 WEEK JUDITH HERNANDEZ [Primary Care Provider] - 06/22/22 1:45 pm Instructions Instructions: Vertigo, [id number], Bradycardia, Adult, Hypertension, Community-Acquired Pneumonia, Adult, [id number] Stand Alone Forms: Excuse From Work or School
[2022-06-09] MEDS ORDERED: LIPITOR TAB 40 MG PO SCH (09:00)
== END 2022-06-08 13:03 | disposition home or self-care (01) | DRG 195 ==
LOC: ER 07:06 → MED/SURG 11:39
PROVIDERS: ADMIT Internal Medicine; ATTEND Family Medicine
DX: R42 Dizziness and giddiness; I25.10 Atherosclerotic heart disease of native coronary artery without angina pectoris; J18.8 Other pneumonia, unspecified organism; R10.84 Generalized abdominal pain; R00.1 Bradycardia, unspecified; I71.21 Aneurysm of the ascending aorta, without rupture; I10 Essential (primary) hypertension; N30.91 Cystitis, unspecified with hematuria; I70.0 Atherosclerosis of aorta; R11.2 Nausea with vomiting, unspecified; R94.31 Abnormal electrocardiogram [ECG] [EKG]; E11.65 Type 2 diabetes mellitus with hyperglycemia

== ENCOUNTER 2024-02-11 10:40 | Observation (INO) ==
[2024-02-11 12:28] LABS: BASOPHILS # (AUTO) 0.1 X10^3/uL (0.0-0.1); BASOPHILS % (AUTO) 1.5 % (0.2-1.0); EOSINOPHILS # (AUTO) 0.2 x10^3/uL (0.0-0.2); EOSINOPHILS % (AUTO) 2.2 % (0.9-2.9); HEMATOCRIT 32.1 % (42.0-54.0); HEMOGLOBIN 11.1 g/dL (13.5-18.0); LYMPHOCYTES % (AUTO) 13.7 % (21.0-51.0); MEAN CORPUSCULAR HEMOGLOBIN 31.9 pg (27.0-34.0); MEAN CORPUSCULAR HGB CONC 34.7 g/dL (33.0-35.0); MEAN CORPUSCULAR VOLUME 91.9 fL (80.0-100.0); MEAN PLATELET VOLUME 8.1 fL (7.4-11.0); MONOCYTES # (AUTO) 0.7 x10^3/uL (0.3-0.8); MONOCYTES % (AUTO) 8.8 % (0.0-13.0); NEUTROPHILS # (AUTO) 5.6 x10^3/uL (2.2-4.8); NEUTROPHILS % (AUTO) 73.8 % (42.0-75.0); PLATELET COUNT 151 X10^3/uL (150.0-450.0); RED BLOOD COUNT 3.49 X10^6/uL (4.7-6.0); RED CELL DISTRIBUTION WIDTH 14.4 % (11.6-16.5); WHITE BLOOD COUNT 7.5 X10^3/uL (3.6-10.0)
--- NOTE | 2024-02-11 12:34 | EKG ---
Test Reason : bradycardia Blood Pressure : */* mmHG Vent. Rate : 57 BPM Atrial Rate : 57 BPM P-R Int : 246 ms QRS Dur : 96 ms QT Int : 426 ms P-R-T Axes : 35 50 42 degrees QTc Int : 414 ms Sinus bradycardia with 1st degree AV block Otherwise normal ECG When compared with ECG of 11-FEB-2024 01:25, No significant change was found Confirmed by Angel Nye MD ([id number]) on 02/11/2024 4:50:35 PM Referred By: Confirmed By: Angel Nye MD
[2024-02-11 12:39] LABS: ALBUMIN 3.3 g/dL (3.4-5.0); CALCIUM 8.5 mg/dL (8.5-10.1); CARBON DIOXIDE 27.3 mmol/L (21-32); COR CA(FOR HYPOALB) 9.1 mg/dL (8.5-10.1); CREATININE 1.5 mg/dL (0.70-1.30); POTASSIUM 4.5 mmol/L (3.5-5.1); TOTAL PROTEIN 6.4 g/dL (6.4-8.2)
--- NOTE | 2024-02-11 14:01 | DR.CONSULT ---
CONSULT Consultation for Day of: Date: 02/11/24 Chief Complaint Chief Complaint: worried over heart block Allergies Allergies Allergy/AdvReac Type Severity Reaction Status Date / Time No Known Drug Allergies Allergy Unknown Verified 01/28/24 03:29 History of Present Illness History of Present Illness: 83 yo male- known cad w stents in every artery-last stent 2017- stress test 2022: apical ischemia but no sx so on meds- has sign htn- cant take arb due to elevated K-came to Er twice in last week/so for tingling throughout body- EKG last pm showed nsr first degree avblock as before but some higher AVblock - at least type 2 but ekg was too short- after phone call to him and continued sx- asked him to come to hosp for obs- on clonidine which can cause suresh- will stop and observe- his bp will go up but will push ccb/add nitrate for bp/cad- pacer if sx suresh/block- right now eating w/o complaints though still has this Past Medical History Past Medical History: Coronary Artery Disease, Diabetes, Hypertension, [place] and Cancer Past Surgical History Surgical History: Cholecystectomy Family History Family Medical History: Diabetes Mellitus, [place] and Hypertension Social History Does any household member use tobacco: No Alcohol Use: None Drug Use: None Medications Home Medications: No Known Drug Allergies Allergy (Unknown, Verified 01/28/24 03:29) CONTINUE taking the following medications furosemide 20 mg tablet 20 mg PO QDAY 02/11/24 [History] metformin 500 mg tablet,extended release 24 hr 1,000 mg PO BID 02/11/24 [History] Physical Exam Vital Signs: Vital Signs Pulse Rate 76 Pulse Rate 50 Respiratory Rate 20 Respiratory Rate 18 Blood Pressure 154/67 Blood Pressure 140/60 O2 Sat by Pulse Oximetry 98 O2 Sat by Pulse Oximetry 98 alert ox3 nad clear lung no bruits suresh/regular no edema last night labs:hct 32, k 4.5 cr 1.5, mg 1.8 Plan (1) Hypomagnesemia: Status: Acute (2) SSS (sick sinus syndrome): Status: Acute (3) AV block, 2nd degree: Status: Acute Narrative Support Text: observe on tele- hold clonidine but push other meds for htn- will set up holter in future unless high degree avblock seen (4) CAD (coronary artery disease): Status: None Narrative Support Text: cont med therapy as no sx (5) HLD (hyperlipidemia): Status: None (6) Hypertension: Status: Acute Qualifiers: Hypertension type: primary hypertension Qualified Code(s): I10 - Essential (primary) hypertension
[2024-02-11] MEDS: ISOSORBIDE MONONITRATE ER 24-HR PO SCH (14:14)
[2024-02-11] MEDS: APRESOLINE TAB 25 MG PO SCH (14:14)
[2024-02-11] MEDS: MAG-OX TAB PO SCH (14:14)
--- NOTE | 2024-02-11 15:12 | RAD ---
EXAMINATION:CHEST, 1 VIEWHISTORY:bradycardia; .COMPARISON STUDY:Chest x-ray 06/06/2022TECHNIQUE:Single frontal erect view chestFINDINGS:Lungs are expanded. Streaky opacities in both lungs. Borderline cardiac silhouette enlargement. Slight pulmonary vascular congestion. CP angles are sharp. Bones are intact.IMPRESSION:Subtle streaky opacities in both lungs. Slight pulmonary vascular congestion.THIS IS AN ELECTRONICALLY VERIFIED FINAL REPORT02/11/2024 3:08 PM - Electronically signed by Ryann Dodson MD
[2024-02-11] MEDS: NovoLIN R (or HumuLIN R) SUBCUT PRN (17:18)
[2024-02-11] MEDS: NORVASC TAB 10 MG PO SCH (20:47)
[2024-02-11] MEDS: LIPITOR TAB 40 MG PO SCH (20:47)
[2024-02-11] MEDS: GLUCOPHAGE XR 24-HR PO SCH (20:47)
[2024-02-11] MEDS: SNACK - Diabetic Appropriate PO SCH (21:00)
[2024-02-12] MEDS: CONSULT PHARMACY - POTASSIUM & MAGNESIUM XX SCH (01:15)
[2024-02-12 05:11] LABS: CALCIUM 8.4 mg/dL (8.5-10.1); COR CA(FOR HYPOALB) 9.2 mg/dL (8.5-10.1); CREATININE 1.47 mg/dL (0.70-1.30); POTASSIUM 4.7 mmol/L (3.5-5.1)
[2024-02-12 05:43] LABS: BASOPHILS % (AUTO) 0.4 % (0.2-1.0); EOSINOPHILS # (AUTO) 0.2 x10^3/uL (0.0-0.2); EOSINOPHILS % (AUTO) 2.3 % (0.9-2.9); HEMATOCRIT 31.5 % (42.0-54.0); HEMOGLOBIN 10.8 g/dL (13.5-18.0); LYMPHOCYTES # (AUTO) 1.4 X10^3/uL (1.3-2.9); LYMPHOCYTES % (AUTO) 19.2 % (21.0-51.0); MEAN CORPUSCULAR HEMOGLOBIN 31.6 pg (27.0-34.0); MEAN CORPUSCULAR HGB CONC 34.2 g/dL (33.0-35.0); MEAN CORPUSCULAR VOLUME 92.3 fL (80.0-100.0); MEAN PLATELET VOLUME 8.8 fL (7.4-11.0); MONOCYTES # (AUTO) 0.8 x10^3/uL (0.3-0.8); MONOCYTES % (AUTO) 10.8 % (0.0-13.0); NEUTROPHILS # (AUTO) 5.1 x10^3/uL (2.2-4.8); NEUTROPHILS % (AUTO) 67.3 % (42.0-75.0); PLATELET COUNT 161 X10^3/uL (150.0-450.0); RED BLOOD COUNT 3.41 X10^6/uL (4.7-6.0); RED CELL DISTRIBUTION WIDTH 14.5 % (11.6-16.5); WHITE BLOOD COUNT 7.5 X10^3/uL (3.6-10.0)
[2024-02-12] MEDS ORDERED: CONSULT PHARMACY - POTASSIUM & MAGNESIUM XX SCH (07:00)
--- NOTE | 2024-02-12 07:57 | EKG ---
Test Reason : av block Blood Pressure : */* mmHG Vent. Rate : 60 BPM Atrial Rate : 60 BPM P-R Int : 216 ms QRS Dur : 88 ms QT Int : 402 ms P-R-T Axes : 26 52 42 degrees QTc Int : 402 ms Sinus rhythm with 1st degree AV block Otherwise normal ECG When compared with ECG of 11-FEB-2024 12:16, No significant change was found Confirmed by Angel Nye MD ([id number]) on 02/12/2024 8:21:05 AM Referred By: Confirmed By: Angel Nye MD
[2024-02-12] MEDS: LASIX PO SCH (08:08)
[2024-02-12] MEDS: ZYLOPRIM PO SCH (08:08)
[2024-02-12] MEDS: PLAVIX PO SCH (08:08)
[2024-02-12 08:11] VITALS: TEMP 98
[2024-02-12] MEDS ORDERED: NORVASC TAB 10 MG PO SCH (09:00)
[2024-02-12] MEDS ORDERED: MAG-OX TAB PO SCH (10:00)
[2024-02-12 10:42] VITALS: BP 174/70
[2024-02-12 11:18] VITALS: O2SAT 96
[2024-02-12 11:57] VITALS: PULSE 65; RESP 54
--- NOTE | 2024-02-13 11:58 | DR.H&P ---
H&P History & Physical for Day of: H&P Date: 02/11/24 Chief Complaint Chief Complaint: dizziness History of Present Illness History of Present Illness: Pt is a 83 year old male admitted for symptomatic bradycardia. He has been to the ER several times for dizziness and feeling some tingling in his body. He failed outpatient treatment. Discussed with cardiologyDr. Parris, recommends admission for further monitoring of bra dycardia. EKG some concern for may be heart block. Will admit patient for further monitoring. Will discontinue clonidine and start on Imdur and increase Norvasc. Order EKG for the morning. Order labs, Follow-up results. Replete electrolytes per protocol. Restart home medications. Otherwise continue to closely monitor and follow-up labs in the morning. Past Medical History Past Medical History: Coronary Artery Disease, Diabetes, Hypertension, [place] and Cancer Past Surgical History Surgical History: Cholecystectomy Family History Family Medical History: Diabetes Mellitus, [place] and Hypertension Social History Does any household member use tobacco: No Alcohol Use: None Drug Use: None Medications Home Medications: Home Medications Medication Instructions Recorded Confirmed Type alendronate 70 mg tablet 70 mg PO QWEEK 01/28/24 02/11/24 History allopurinol 100 mg tablet 100 mg PO QDAY 01/28/24 02/11/24 History amlodipine 10 mg tablet 10 mg PO QDAY 01/28/24 02/11/24 History atorvastatin 40 mg tablet 40 mg PO HS 01/28/24 02/11/24 History clonidine HCl 0.3 mg tablet 0.3 mg PO TID 01/28/24 02/11/24 History clopidogrel 75 mg tablet 75 mg PO QDAY 01/28/24 02/11/24 History hydralazine 100 mg tablet 100 mg PO TID 01/28/24 02/11/24 History hydrochlorothiazide 12.5 mg tablet 12.5 mg PO QDAY 01/28/24 02/11/24 History metformin 500 mg tablet,extended 1,000 mg PO HS 01/28/24 02/11/24 History release 24 hr testosterone cypionate 100 mg/mL 100 mg IM Q2W 01/28/24 02/11/24 History intramuscular oil furosemide 20 mg tablet 20 mg PO QDAY 02/11/24 02/11/24 History metformin 500 mg tablet,extended 1,000 mg PO BID 02/11/24 02/11/24 History release 24 hr Allergies Allergies Allergy/AdvReac Type Severity Reaction Status Date / Time No Known Drug Allergies Allergy Unknown Verified 01/28/24 03:29 Labs 02/12/24 04:21 02/12/24 04:21 Labs: Laboratory WBC 7.5 X10^3/uL (3.6-10.0) 02/12/24 04:21 RBC 3.41 X10^6/uL (4.7-6.0) L 02/12/24 04:21 Hgb 10.8 g/dL (13.5-18.0) L 02/12/24 04:21 Hct 31.5 % (42.0-54.0) L 02/12/24 04:21 MCV 92.3 fL (80.0-100.0) 02/12/24 04:21 MCH 31.6 pg (27.0-34.0) 02/12/24 04:21 MCHC 34.2 g/dL (33.0-35.0) 02/12/24 04:21 RDW 14.5 % (11.6-16.5) 02/12/24 04:21 Plt Count 161 X10^3/uL (150.0-450.0) 02/12/24 04:21 MPV 8.8 fL (7.4-11.0) 02/12/24 04:21 Neut % (Auto) 67.3 % (42.0-75.0) 02/12/24 04:21 Lymph % (Auto) 19.2 % (21.0-51.0) L 02/12/24 04:21 [place] % (Auto) 10.8 % (0.0-13.0) 02/12/24 04:21 Eos % (Auto) 2.3 % (0.9-2.9) 02/12/24 04:21 Baso % (Auto) 0.4 % (0.2-1.0) 02/12/24 04:21 Neut # (Auto) 5.1 x10^3/uL (2.2-4.8) H 02/12/24 04:21 Lymph # (Auto) 1.4 X10^3/uL (1.3-2.9) 02/12/24 04:21 [place] # (Auto) 0.8 x10^3/uL (0.3-0.8) 02/12/24 04:21 Eos # (Auto) 0.2 x10^3/uL (0.0-0.2) 02/12/24 04:21 Baso # (Auto) 0.0 X10^3/uL (0.0-0.1) 02/12/24 04:21 Absolute Nucleated RBC 0.0 /100WBC 02/12/24 04:21 Sodium 135 mmol/L (136-145) L 02/12/24 04:21 Corrected Sodium 136 mmol/L (136-145) 02/12/24 04:21 Potassium 4.7 mmol/L (3.5-5.1) 02/12/24 04:21 Chloride 101 mmol/L (98-107) 02/12/24 04:21 Carbon Dioxide 29.0 mmol/L (21-32) 02/12/24 04:21 BUN 24 mg/dL (7-18) H 02/12/24 04:21 Creatinine 1.47 mg/dL (0.70-1.30) H 02/12/24 04:21 Est GFR (MDRD) Af Amer 59 (>60) 02/12/24 04:21 Est GFR (MDRD) Non-Af 49 (>60) L 02/12/24 04:21 Glucose 121 mg/dL (65-99) H 02/12/24 04:21 POC Glucose (mg/dL) 117 mg/dL (65-99) H 02/12/24 11:25 Calcium 8.4 mg/dL (8.5-10.1) L 02/12/24 04:21 Corrected Calcium 9.2 mg/dL (8.5-10.1) 02/12/24 04:21 Magnesium 1.9 mg/dL (2.0-2.9) L 02/12/24 04:24 Total Bilirubin 0.40 mg/dL (0.2-1.0) 02/12/24 04:21 AST 16 Units/L (15-37) 02/12/24 04:21 ALT 24 Units/L (12-78) 02/12/24 04:21 Alkaline Phosphatase 127 Units/L (46-116) H 02/12/24 04:21 Total Protein 6.0 g/dL (6.4-8.2) L 02/12/24 04:21 Albumin 3.0 g/dL (3.4-5.0) L 02/12/24 04:21 Globulin 3.0 g/dL (2.5-4.5) 02/12/24 04:21 Albumin/Globulin Ratio 1.0 Ratio (1.1-2.1) L 02/12/24 04:21 TSH 3rd Generation 1.912 uIU/mL (0.358-3.74) 02/11/24 12:15 Review of Systems Constitutional: Other (dizziness ) Eyes: No Symptoms Reported ENT: No Symptoms Reported Respiratory: No Symptoms Reported Cardiovascular: No Symptoms Reported Gastrointestinal: No Symptoms Reported Genitourinary: No Symptoms Reported Musculoskeletal: No Symptoms Reported Skin: No Symptoms Reported Neurological: No Symptoms Reported Oriented: Normal Eyes: Normal Ear: Normal Nose: Normal Throat: Normal Respiratory: Clear Throughout Cardiovascular: Bradycardia : Normal Auscultation: Bowel Sounds: Normal Palpation: Normal Tenderness: Normal Skin: Normal Musculoskeletal: Normal Psychiatric: Normal Mood Description: Calm and Appropriate Affect: Normal Speech Pattern: Clear and Appropriate Assessment/Plan (1) Hypomagnesemia: Status: Acute (2) SSS (sick sinus syndrome): Status: Acute (3) AV block, 2nd degree: Status: Acute (4) CAD (coronary artery disease): Status: None (5) HLD (hyperlipidemia): Status: None (6) Hypertension: Qualifiers: Hypertension type: primary hypertension Qualified Code(s): I10 - Essential (primary) hypertension Status: Acute Review H&P Reviewed: Yes Patient was examined?: Yes
--- NOTE | 2024-02-13 12:07 | W.DIS.FURT ---
Summary of Discharge Discharge Summary of Date Date of Exam: 02/12/24 Admission Date Date of Admission: 02/11/24 Admission Diagnosis Hospital Course: Pt is a 83 year old male admitted for symptomatic bradycardia. CardiologyDr. Parris, consulted, evaluated ekg determining second degress av block. Patient was monitored on telemetry. Home clonidine was discontinued. Imdur was added and increase Norvasc. Electrolytes repleted per protocol. Pt responded well to treatment and he was discharged in stable condition. He will need further follow up with cardiology this coming up week. Instructed to follow up with pcp in 1 week. Vital Signs: Vital Signs (72 hours) 02/11/24 01:09 02/11/24 12:16 02/11/24 12:00 Temperature Pulse Rate 50 L Respiratory Rate 18 Blood Pressure 154/68 140/60 O2 Sat by Pulse Oximetry 98 Oxygen Delivery Method Room Air Room Air Oxygen Flow Rate 2 FIO2% 28 02/11/24 11:08 02/11/24 13:00 02/11/24 14:00 Temperature Pulse Rate 76 50 L Respiratory Rate 20 22 Blood Pressure 154/67 162/69 O2 Sat by Pulse Oximetry 98 98 Oxygen Delivery Method Room Air Room Air Room Air Oxygen Flow Rate FIO2% 02/11/24 15:00 02/11/24 16:00 02/11/24 17:00 Temperature 97.8 F Pulse Rate 51 L 47 L 47 L Respiratory Rate 21 20 22 Blood Pressure 142/63 143/70 165/67 O2 Sat by Pulse Oximetry 99 97 96 Oxygen Delivery Method Room Air Room Air Room Air Oxygen Flow Rate FIO2% 02/11/24 18:00 02/11/24 19:00 02/11/24 19:00 Temperature Pulse Rate 50 L Respiratory Rate 20 Blood Pressure 145/67 167/67 O2 Sat by Pulse Oximetry 97 Oxygen Delivery Method Room Air Nasal Cannula Oxygen Flow Rate 2 FIO2% 02/11/24 19:00 02/11/24 19:45 02/11/24 19:59 Temperature 98.1 F Pulse Rate 51 L 50 L 52 L Respiratory Rate 30 H 35 H 28 H Blood Pressure O2 Sat by Pulse Oximetry 97 97 97 Oxygen Delivery Method Oxygen Flow Rate FIO2% 02/11/24 20:00 02/11/24 21:00 02/11/24 21:00 Temperature Pulse Rate 58 L Respiratory Rate 28 H Blood Pressure 148/74 148/73 O2 Sat by Pulse Oximetry 97 Oxygen Delivery Method Oxygen Flow Rate FIO2% 02/11/24 22:01 02/11/24 22:03 02/11/24 22:03 Temperature Pulse Rate 63 Respiratory Rate 39 H Blood Pressure 207/79 181/55 O2 Sat by Pulse Oximetry 95 Oxygen Delivery Method Oxygen Flow Rate FIO2% 02/11/24 22:27 02/11/24 23:00 02/11/24 23:01 Temperature Pulse Rate 51 L Respiratory Rate 25 H Blood Pressure 134/63 130/61 O2 Sat by Pulse Oximetry 96 Oxygen Delivery Method Oxygen Flow Rate FIO2% 02/12/24 00:00 02/12/24 00:00 02/12/24 01:00 Temperature 98.0 F Pulse Rate 52 L 53 L Respiratory Rate 32 H 35 H Blood Pressure 132/63 O2 Sat by Pulse Oximetry 97 97 Oxygen Delivery Method Oxygen Flow Rate FIO2% 02/12/24 01:01 02/12/24 01:03 02/12/24 02:00 Temperature Pulse Rate Respiratory Rate Blood Pressure 192/78 147/67 126/60 O2 Sat by Pulse Oximetry Oxygen Delivery Method Oxygen Flow Rate FIO2% 02/12/24 02:00 02/11/24 22:10 02/12/24 02:58 Temperature Pulse Rate 54 L Respiratory Rate 25 H Blood Pressure O2 Sat by Pulse Oximetry 97 Oxygen Delivery Method CPAP Oxygen Flow Rate 2 FIO2% 28 02/11/24 23:55 02/12/24 03:00 02/12/24 03:00 Temperature Pulse Rate 56 L Respiratory Rate 23 Blood Pressure 129/62 O2 Sat by Pulse Oximetry 97 Oxygen Delivery Method Nasal Cannula Oxygen Flow Rate 2 FIO2% 28 02/12/24 04:00 02/12/24 04:00 02/12/24 05:00 Temperature 98.1 F Pulse Rate 55 L 57 L Respiratory Rate 24 22 Blood Pressure 137/63 O2 Sat by Pulse Oximetry 97 96 Oxygen Delivery Method Oxygen Flow Rate FIO2% 02/12/24 05:00 02/12/24 06:00 02/12/24 06:01 Temperature Pulse Rate 66 Respiratory Rate 22 Blood Pressure 150/63 169/68 O2 Sat by Pulse Oximetry 96 Oxygen Delivery Method Oxygen Flow Rate FIO2% 02/12/24 06:15 02/12/24 06:30 02/12/24 06:45 Temperature Pulse Rate 61 58 L 57 L Respiratory Rate 49 H 47 H 43 H Blood Pressure O2 Sat by Pulse Oximetry 96 96 97 Oxygen Delivery Method Oxygen Flow Rate FIO2% 02/12/24 07:00 02/12/24 07:00 02/12/24 07:00 Temperature Pulse Rate 64 Respiratory Rate 49 H Blood Pressure 195/81 O2 Sat by Pulse Oximetry 97 Oxygen Delivery Method Nasal Cannula Oxygen Flow Rate 2 FIO2% 02/12/24 07:15 02/12/24 07:18 02/12/24 07:18 Temperature Pulse Rate 59 L 80 Respiratory Rate 38 H 38 H Blood Pressure 193/140 O2 Sat by Pulse Oximetry 97 97 Oxygen Delivery Method Oxygen Flow Rate FIO2% 02/12/24 07:21 02/12/24 07:21 02/12/24 07:30 Temperature Pulse Rate 70 59 L Respiratory Rate 30 H 25 H Blood Pressure 189/76 O2 Sat by Pulse Oximetry 96 97 Oxygen Delivery Method Oxygen Flow Rate FIO2% 02/12/24 07:45 02/12/24 08:07 02/12/24 08:45 Temperature 98.0 F Pulse Rate 78 72 Respiratory Rate 41 H 37 H Blood Pressure O2 Sat by Pulse Oximetry 97 93 L Oxygen Delivery Method Nasal Cannula Oxygen Flow Rate 2 FIO2% 02/12/24 08:11 02/12/24 08:11 02/12/24 08:15 Temperature Pulse Rate 65 66 Respiratory Rate 30 H 38 H Blood Pressure 164/78 O2 Sat by Pulse Oximetry 96 96 Oxygen Delivery Method Oxygen Flow Rate FIO2% 02/12/24 08:30 02/12/24 08:45 02/12/24 09:00 Temperature Pulse Rate 58 L 56 L 75 Respiratory Rate 47 H 39 H 39 H Blood Pressure O2 Sat by Pulse Oximetry 96 97 97 Oxygen Delivery Method Oxygen Flow Rate FIO2% 02/12/24 09:15 02/12/24 09:30 02/12/24 09:45 Temperature Pulse Rate 59 L 56 L 61 Respiratory Rate 37 H 39 H 49 H Blood Pressure O2 Sat by Pulse Oximetry 97 97 97 Oxygen Delivery Method Oxygen Flow Rate FIO2% 02/12/24 10:00 02/12/24 10:15 02/12/24 10:42 Temperature Pulse Rate 69 62 Respiratory Rate 41 H 50 H Blood Pressure 174/70 O2 Sat by Pulse Oximetry 96 97 Oxygen Delivery Method Oxygen Flow Rate FIO2% Labs: Laboratory Last Values WBC 7.5 X10^3/uL (3.6-10.0) 02/12/24 04:21 RBC 3.41 X10^6/uL (4.7-6.0) L 02/12/24 04:21 Hgb 10.8 g/dL (13.5-18.0) L 02/12/24 04:21 Hct 31.5 % (42.0-54.0) L 02/12/24 04:21 MCV 92.3 fL (80.0-100.0) 02/12/24 04:21 MCH 31.6 pg (27.0-34.0) 02/12/24 04:21 MCHC 34.2 g/dL (33.0-35.0) 02/12/24 04:21 RDW 14.5 % (11.6-16.5) 02/12/24 04:21 Plt Count 161 X10^3/uL (150.0-450.0) 02/12/24 04:21 MPV 8.8 fL (7.4-11.0) 02/12/24 04:21 Neut % (Auto) 67.3 % (42.0-75.0) 02/12/24 04:21 Lymph % (Auto) 19.2 % (21.0-51.0) L 02/12/24 04:21 [place] % (Auto) 10.8 % (0.0-13.0) 02/12/24 04:21 Eos % (Auto) 2.3 % (0.9-2.9) 02/12/24 04:21 Baso % (Auto) 0.4 % (0.2-1.0) 02/12/24 04:21 Neut # (Auto) 5.1 x10^3/uL (2.2-4.8) H 02/12/24 04:21 Lymph # (Auto) 1.4 X10^3/uL (1.3-2.9) 02/12/24 04:21 [place] # (Auto) 0.8 x10^3/uL (0.3-0.8) 02/12/24 04:21 Eos # (Auto) 0.2 x10^3/uL (0.0-0.2) 02/12/24 04:21 Baso # (Auto) 0.0 X10^3/uL (0.0-0.1) 02/12/24 04:21 Absolute Nucleated RBC 0.0 /100WBC 02/12/24 04:21 Sodium 135 mmol/L (136-145) L 02/12/24 04:21 Corrected Sodium 136 mmol/L (136-145) 02/12/24 04:21 Potassium 4.7 mmol/L (3.5-5.1) 02/12/24 04:21 Chloride 101 mmol/L (98-107) 02/12/24 04:21 Carbon Dioxide 29.0 mmol/L (21-32) 02/12/24 04:21 BUN 24 mg/dL (7-18) H 02/12/24 04:21 Creatinine 1.47 mg/dL (0.70-1.30) H 02/12/24 04:21 Est GFR (MDRD) Af Amer 59 (>60) 02/12/24 04:21 Est GFR (MDRD) Non-Af 49 (>60) L 02/12/24 04:21 Glucose 121 mg/dL (65-99) H 02/12/24 04:21 POC Glucose (mg/dL) 117 mg/dL (65-99) H 02/12/24 05:13 Calcium 8.4 mg/dL (8.5-10.1) L 02/12/24 04:21 Corrected Calcium 9.2 mg/dL (8.5-10.1) 02/12/24 04:21 Magnesium 1.9 mg/dL (2.0-2.9) L 02/12/24 04:24 Total Bilirubin 0.40 mg/dL (0.2-1.0) 02/12/24 04:21 AST 16 Units/L (15-37) 02/12/24 04:21 ALT 24 Units/L (12-78) 02/12/24 04:21 Alkaline Phosphatase 127 Units/L (46-116) H 02/12/24 04:21 Total Protein 6.0 g/dL (6.4-8.2) L 02/12/24 04:21 Albumin 3.0 g/dL (3.4-5.0) L 02/12/24 04:21 Globulin 3.0 g/dL (2.5-4.5) 02/12/24 04:21 Albumin/Globulin Ratio 1.0 Ratio (1.1-2.1) L 02/12/24 04:21 TSH 3rd Generation 1.912 uIU/mL (0.358-3.74) 02/11/24 12:15 Reason For Visit: SYMPTOMATIC BRADYCARDIA Discharge Date Discharge Date: 02/12/24 Discharge Diagnosis All Active Problems (Updated 02/11/24 @ 14:00 by ZAIDA COSTA) AV block, 2nd degree (Acute) SSS (sick sinus syndrome) (Acute) Atypical chest pain (Acute) Hypomagnesemia (Acute) Chronic sinus bradycardia (Acute) ARMD (age related macular degeneration) (Chronic) Hyperuricemia without signs inflammatory arthritis/tophaceous disease (Acute) Blepharospasm of both eyes (Acute) Hypomagnesemia (Acute) Encounter for diabetic foot exam (Acute) Thoracic aortic aneurysm (TAA) (Acute) Carotid arterial disease (Acute) AAA (abdominal aortic aneurysm) (Acute) COVID-19 (Acute) Pressure sensation in right ear (Acute) Localized swelling, mass and lump, right lower limb (Acute) Right shoulder pain (Acute) Paresthesia of left foot (Acute) Essential hypertension with goal blood pressure less than 130/85 (Chronic) Hyposomnia, insomnia, or sleeplessness associated with anxiety (Acute) Sleep apnea treated with continuous positive airway pressure (CPAP) (Acute) Abdominal pain (Acute) Cholelithiasis (Acute) Right inguinal hernia (Acute) Hyperglycemia (Acute) UTI (urinary tract infection) (Acute) Decreased hearing (Acute) Degenerative disc disease, lumbar (Acute) Chronic kidney disease (Acute) Chest pain (Acute) Chest pain (Acute) Pneumonia (Acute) Abdominal pain (Acute) Bradycardia (Acute) Vertigo (Acute) Hypertension (Acute) Acute labyrinthitis (Acute) Erectile dysfunction (Acute) Plan of Treatment: Continue with present treatment and follow up plan. Pt is to keep follow up appointment as instructed and take medications as ordered. Discharge Medications Discharge Medications: No Known Drug Allergies Allergy (Unknown, Verified 01/28/24 03:29) CONTINUE taking the following medications furosemide 20 mg tablet 20 mg PO QDAY 02/11/24 [History] metformin 500 mg tablet,extended release 24 hr 1,000 mg PO BID 02/11/24 [History] Discharge Plan Discharge Plan Hospital Course: Pt is a 83 year old male admitted for symptomatic bradycardia. CardiologyDrCharley Costa, consulted, evaluated ekg determining second degress av block. Patient was monitored on telemetry. Home clonidine was discontinued. Imdur was added and increase Norvasc. Electrolytes repleted per protocol. Pt responded well to treatment and he was discharged in stable condition. He will need further follow up with cardiology this coming up week. Instructed to follow up with pcp in 1 week. Patient Disposition: HOME, SELF-CARE Condition: Stable Health Concerns: Post Hospitalization: new medications and changes needed to prevent readmission or further decline. Pt educated and given instructions on all concerns. Plan of Treatment: Continue with present treatment and follow up plan. Pt is to keep follow up caro ointment as instructed and take medications as ordered. Prescriptions: New isosorbide mononitrate 60 mg tablet extended release 24 hr 60 mg PO QDAY 30 Days Qty: 30 0RF Continued magnesium oxide 400 mg magnesium tablet 800 mg PO BID MDD 4 5 Days Qty: 20 0RF atorvastatin 40 mg tablet 40 mg PO HS alendronate 70 mg tablet 70 mg PO QWEEK testosterone cypionate 100 mg/mL oil 100 mg IM Q2W clopidogrel 75 mg tablet 75 mg PO QDAY allopurinol 100 mg tablet 100 mg PO QDAY hydralazine 100 mg tablet 100 mg PO TID metformin 500 mg tablet extended release 24 hr 1,000 mg PO HS hydrochlorothiazide 12.5 mg tablet 12.5 mg PO QDAY furosemide 20 mg tablet 20 mg PO QDAY metformin 500 mg tablet extended release 24 hr 1,000 mg PO BID Changed amlodipine 10 mg tablet 10 mg PO BID 30 Days Qty: 60 0RF Discontinued clonidine HCl 0.3 mg tablet 0.3 mg PO TID Orders to Discharge Patient Discharge Orders: Discharge (Routine); Ordered 02/12/24 Ordered By: Martin De La Garza Follow ups/Referrals Follow ups/Referrals: Martin De La Garza [Primary Care Provider] - 1 WEEK ZAIDA COSTA [STAFF PHYSICIAN] - 1 WEEK Instructions Instructions: Bradycardia, Adult Activity Restrictions/Additional Instructions: FLU WITH PARRIS MARINELLI PT HAS AN APPT ON 02/18/24- PT TOLD TO FLU SOONER ,BR Stand Alone Forms: Excuse From Work or School, Post Hospital Follow Up Care
== END 2024-02-12 12:00 | disposition home or self-care (01) ==
LOC: ICU
PROVIDERS: ADMIT Family Medicine; ATTEND Family Medicine

== ENCOUNTER 2024-08-13 18:55 | Observation (INO) ==
[2024-08-13 19:21] LABS: BASOPHILS # (AUTO) 0.1 X10^3/uL (0.0-0.1); BASOPHILS % (AUTO) 1.2 % (0.2-1.0); EOSINOPHILS # (AUTO) 0.4 x10^3/uL (0.0-0.2); EOSINOPHILS % (AUTO) 3.8 % (0.9-2.9); HEMATOCRIT 23.6 % (42.0-54.0); HEMOGLOBIN 7.9 g/dL (13.5-18.0); LYMPHOCYTES # (AUTO) 0.8 X10^3/uL (1.3-2.9); LYMPHOCYTES % (AUTO) 8.2 % (21.0-51.0); MEAN CORPUSCULAR HEMOGLOBIN 28.2 pg (27.0-34.0); MEAN CORPUSCULAR HGB CONC 33.7 g/dL (33.0-35.0); MEAN CORPUSCULAR VOLUME 83.6 fL (80.0-100.0); MEAN PLATELET VOLUME 6.9 fL (7.4-11.0); MONOCYTES # (AUTO) 0.9 x10^3/uL (0.3-0.8); MONOCYTES % (AUTO) 9.6 % (0.0-13.0); NEUTROPHILS # (AUTO) 7.4 x10^3/uL (2.2-4.8); NEUTROPHILS % (AUTO) 77.2 % (42.0-75.0); PLATELET COUNT 323 X10^3/uL (150.0-450.0); RED BLOOD COUNT 2.82 X10^6/uL (4.7-6.0); RED CELL DISTRIBUTION WIDTH 17.9 % (11.6-16.5); WHITE BLOOD COUNT 9.7 X10^3/uL (3.6-10.0)
--- NOTE | 2024-08-13 19:22 | EKG ---
Test Reason : weakness Blood Pressure : */* mmHG Vent. 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
[2024-08-13 19:36] LABS: ALBUMIN 2.1 g/dL (3.4-5.0); CALCIUM 8.6 mg/dL (8.5-10.1); CARBON DIOXIDE 27.3 mmol/L (21-32); COR CA(FOR HYPOALB) 10.1 mg/dL (8.5-10.1); CREATININE 1.51 mg/dL (0.70-1.30); POTASSIUM 4.9 mmol/L (3.5-5.1)
--- NOTE | 2024-08-13 20:21 | DR.DIARMA ---
HPI Time seen Time Seen by Provider: 08/13/24 20:20 PCP Primary Care Physician: pablo HPI Comment HPI Comment: Patient states he has been having diarrhea on and off for several months. 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 As a result he was taking ivermectin. He denies any melena, hematochezia or hematemesis. Denies any hematuria. He states he has been feeling weak and his hemoglobin has been low over the last few months. Patient has had extensive cardiac history with coronary artery disease and stents. Complaint Chief Complaint:: pt c/o diarrhea after taking a dose of ivermectin pt also complaint of feeling weak pt states" I think my magnesium is low and my blood count is low" Source History Provided: Patient Mode of Arrival Mode of Arrival: Wheelchair Timing Onset of Chief Complaint: 08/13/24 PMH PMH Past Medical History: Yes Past Medical History: Coronary Artery Disease, Diabetes, Dyslipidemia, Hypertension, [place] and Cancer Past Surgical History: Yes Surgical History: Angioplasty/Stents and Cholecystectomy Family History History of Family Medical Conditions: Yes Family Medical History: Diabetes Mellitus, [place] and Hypertension Social History Does any household member use tobacco: No Do you use any recreational Drugs:: No Lives With: Family Lives Where: Home Infectious screening In the last 2 months have you had wt loss of >10#?: NO Have you had fever, night sweats or hemotysis?: No Have you traveled outside the country in the last 6 months?: No Isolation: Standard ROS Review of Systems Constitutional: See HPI and Fatigue; negative Fever Eyes: No Symptoms Reported ENTM: No Symptoms Reported Respiratoy: No Symptoms Reported Cardiovascular: No Symptoms Reported Gastrointestinal/Abdominal: See HPI and Diarrhea; negative Abdominal Pain, Constipation, Nausea or Vomiting Genitourinary: No Symptoms Reported Neurological: No Symptoms Reported Musculoskeletal: No Symptoms Reported Integumentary: No Symptoms Reported Hematologic/Lymphatic: No Symptoms Reported Endocrine: No Symptoms Reported Psychiatric: No Symptoms Reported All Other Systems: Reviewed and Negative PE Vital Signs Vitals: Vital Signs Temperature 98.2 F Pulse Rate 92 Pulse Rate 92 Pulse Rate 87 Pulse Rate 88 Pulse Rate 89 Pulse Rate 89 Pulse Rate 86 Pulse Rate 87 Pulse Rate 90 Pulse Rate 90 Pulse Rate 95 Pulse Rate 104 Respiratory Rate 20 Blood Pressure 145/106 Blood Pressure 139/63 Blood Pressure 153/67 Blood Pressure 142/64 Blood Pressure 140/63 Blood Pressure 155/67 O2 Sat by Pulse Oximetry 95 O2 Sat by Pulse Oximetry 95 O2 Sat by Pulse Oximetry 94 O2 Sat by Pulse Oximetry 93 O2 Sat by Pulse Oximetry 93 O2 Sat by Pulse Oximetry 95 O2 Sat by Pulse Oximetry 93 O2 Sat by Pulse Oximetry 93 O2 Sat by Pulse Oximetry 92 O2 Sat by Pulse Oximetry 94 O2 Sat by Pulse Oximetry 94 O2 Sat by Pulse Oximetry 92 General Limitations: No Limitations General Appearance: Alert Head Head Exam: Normal Inspection Eyes Eye exam: Normal Appearance ENT ENT Exam: Normal Exam Neck Neck Exam: Normal Inspection Chest Chest Inspection: Normal Inspection Respiratory Respiratory Exam: Normal Lung Sounds Bilat Cardiovascular Cardiovascular Exam: Regular Rate and Normal Rhythm Abdominal Exam Abdominal Exam: Normal Inspection, Normal Bowel Sounds and Soft; negative Distention, Tenderness, Guarding, Rebound or Rigidity Rectal Rectal: Deferred Genitourinary Scrotum: Deferred Hernia: Deferred Prostate: Deferred Extremeties Extremities Exam: Normal Inspection Back Back Exam: Normal Inspection Neurologic Neurological Exam: Alert and Oriented X3 Psychiatric Psychiatric Exam: Normal Affect and Normal Mood Skin Skin Exam: Warm, Dry, Intact and Normal Color COURSE Treatment Treatment: Patient with chronic and worsening anemia over the last few months at this point his hemoglobin is 7.8. Show some signs of dehydration but has had chronic diarrhea as well. Liver enzymes slightly elevated. At this point probably a good idea to admit and observe overnight and recheck hemoglobin in the morning. [facility] Labs Reviewed 08/13/24 19:10 08/13/24 19:10 Laboratory: WBC 9.7 X10^3/uL (3.6-10.0) 08/13/24 19:10 RBC 2.82 X10^6/uL (4.7-6.0) L 08/13/24 19:10 Hgb 7.9 g/dL (13.5-18.0) L 08/13/24 19:10 Hct 23.6 % (42.0-54.0) L 08/13/24 19:10 MCV 83.6 fL (80.0-100.0) 08/13/24 19:10 MCH 28.2 pg (27.0-34.0) 08/13/24 19:10 MCHC 33.7 g/dL (33.0-35.0) 08/13/24 19:10 RDW 17.9 % (11.6-16.5) H 08/13/24 19:10 Plt Count 323 X10^3/uL (150.0-450.0) 08/13/24 19:10 MPV 6.9 fL (7.4-11.0) L 08/13/24 19:10 Neut % (Auto) 77.2 % (42.0-75.0) H 08/13/24 19:10 Lymph % (Auto) 8.2 % (21.0-51.0) L 08/13/24 19:10 [place] % (Auto) 9.6 % (0.0-13.0) 08/13/24 19:10 Eos % (Auto) 3.8 % (0.9-2.9) H 08/13/24 19:10 Baso % (Auto) 1.2 % (0.2-1.0) H 08/13/24 19:10 Neut # (Auto) 7.4 x10^3/uL (2.2-4.8) H 08/13/24 19:10 Lymph # (Auto) 0.8 X10^3/uL (1.3-2.9) L 08/13/24 19:10 [place] # (Auto) 0.9 x10^3/uL (0.3-0.8) H 08/13/24 19:10 Eos # (Auto) 0.4 x10^3/uL (0.0-0.2) H 08/13/24 19:10 Baso # (Auto) 0.1 X10^3/uL (0.0-0.1) 08/13/24 19:10 Absolute Nucleated RBC 0.0 /100WBC 08/13/24 19:10 Sodium 135 mmol/L (136-145) L 08/13/24 19:10 Corrected Sodium 137 mmol/L (136-145) 08/13/24 19:10 Potassium 4.9 mmol/L (3.5-5.1) 08/13/24 19:10 Chloride 100 mmol/L (98-107) 08/13/24 19:10 Carbon Dioxide 27.3 mmol/L (21-32) 08/13/24 19:10 BUN 32 mg/dL (7-18) H 08/13/24 19:10 Creatinine 1.51 mg/dL (0.70-1.30) H 08/13/24 19:10 Est GFR (MDRD) Af Amer 57 (>60) L 08/13/24 19:10 Est GFR (MDRD) Non-Af 47 (>60) L 08/13/24 19:10 Glucose 192 mg/dL (65-99) H 08/13/24 19:10 Calcium 8.6 mg/dL (8.5-10.1) 08/13/24 19:10 Corrected Calcium 10.1 mg/dL (8.5-10.1) 08/13/24 19:10 Magnesium 1.8 mg/dL (2.0-2.9) L 08/13/24 19:10 Total Bilirubin 0.40 mg/dL (0.2-1.0) 08/13/24 19:10 AST 80 Units/L (15-37) H 08/13/24 19:10 ALT 107 Units/L (12-78) H 08/13/24 19:10 Alkaline Phosphatase 126 Units/L (46-116) H 08/13/24 19:10 Creatine Kinase 42 Units/L (39-308) 08/13/24 19:10 Troponin I High Sens 17.8 ng/L (4.0-60.0) 08/13/24 19:10 Total Protein 7.0 g/dL (6.4-8.2) 08/13/24 19:10 Albumin 2.1 g/dL (3.4-5.0) L 08/13/24 19:10 Globulin 4.9 g/dL (2.5-4.5) H 08/13/24 19:10 Albumin/Globulin Ratio 0.4 Ratio (1.1-2.1) L 08/13/24 19:10 Opioid Opioid Risk Tool Age (Shane box if 16-45): No History of Preadolescent Sexual Abuse: No Total: 0 Total Score Risk Category: Low Risk Copyright: Cortez HUYNH predicting aberrant behaviors Discharge Plan Diagnosis Discharge Problem: Anemia, Diarrhea of infectious origin, Dehydration Discharge Plan Patient Disposition: ADMITTED INPATIENT Condition: Stable Prescriptions: No Action (DME) lancets [TRUEplus Lancets] 33 gauge misc See Rx Instructions .Route Qty: 100 5RF Rx Instructions: 2-3 times a day. As directed cefdinir 300 mg capsule 300 mg PO QDAY MDD 1 10 Days Qty: 10 0RF alendronate 70 mg tablet 70 mg PO QWEEK Qty: 12 2RF hydralazine 100 mg tablet 100 mg PO TID MDD 3 90 Days Qty: 270 0RF metoprolol succinate 25 mg tablet extended release 24 hr 12.5 mg PO QDAY MDD 1/2 tab daily 90 Days Qty: 90 0RF prasugrel HCl 10 mg tablet 10 mg PO QDAY MDD 1 with 81 mg heart smart ASA d 90 Days Qty: 90 1RF isosorbide mononitrate 60 mg tablet extended release 24 hr 30 mg PO QAM MDD 1/2 tab 90 Days Qty: 45 0RF nitroglycerin 0.4 mg tablet, sublingual 0.4 mg sublingual Q5-15M PRN (Reason: chest pain) Qty: 30 3RF Rx Instructions: do not exceed 3 doses per episode atorvastatin 80 mg tablet 80 mg PO QHS MDD 1 90 Days Qty: 90 1RF lisinopril 5 mg tablet 5 mg PO QDAY MDD 1 90 Days Qty: 90 1RF amlodipine 2.5 mg tablet 2.5 mg PO QDAY metformin 500 mg tablet extended release 24 hr 1,000 mg PO BID Centrum Silver Tablet 1 tab PO QDAY aspirin 81 mg Capsule 81 mg PO QDAY calcium 600 mg Capsule 600 mg PO BID cyanocobalamin (vitamin B-12) 1,000 mcg Tablet 1,000 mcg PO DAILY niacin 500 mg Tablet 500 mg PO DAILY cholecalciferol (vitamin D3) [Vitamin D3] 50 mcg (2,000 unit) Capsule 50 mcg PO DAILY lutein 20 mg Tablet 20 mg PO DAILY Health Concerns: Post Hospitalization: new medications and changes needed to prevent readmission or further decline. Pt educated and given instructions on all concerns. Plan of Treatment: Continue with present treatment and follow up plan. Pt is to keep follow up appointment as instructed and take medications as ordered. Orders to Discharge Patient Discharge Orders: Transfer (Routine); Ordered 08/13/24 Ordered By: Brice Martinez Follow ups/Referrals Follow ups/Referrals: Martin De La Garza MD [Primary Care Provider] - 3 days Instructions Stand Alone Forms: Find Help Web Site, Post Hospital Follow Up Care
[2024-08-13] MEDS ORDERED: CONSULT PHARMACY - POTASSIUM & MAGNESIUM XX SCH (23:24)
[2024-08-14] MEDS: NS 1,000 ML IV 1,000 ML IV SCH (00:47)
[2024-08-14] MEDS: NITAZOXANIDE PO SCH ×2 (00:47→13:40)
[2024-08-14 01:42] VITALS: BMI 24.9
[2024-08-14 06:21] LABS: EOSINOPHILS # (AUTO) 0.3 x10^3/uL (0.0-0.2); HEMOGLOBIN 7.3 g/dL (13.5-18.0); LYMPHOCYTES # (AUTO) 0.8 X10^3/uL (1.3-2.9); MEAN CORPUSCULAR HGB CONC 33.3 g/dL (33.0-35.0); MEAN PLATELET VOLUME 7.5 fL (7.4-11.0); NEUTROPHILS # (AUTO) 5.9 x10^3/uL (2.2-4.8); WHITE BLOOD COUNT 7.9 X10^3/uL (3.6-10.0)
[2024-08-14 06:30] LABS: BASOPHILS % (AUTO) 0.5 % (0.2-1.0); EOSINOPHILS % (AUTO) 4.2 % (0.9-2.9); HEMATOCRIT 21.9 % (42.0-54.0); LYMPHOCYTES % (AUTO) 10.4 % (21.0-51.0); MONOCYTES # (AUTO) 0.8 x10^3/uL (0.3-0.8); MONOCYTES % (AUTO) 10.1 % (0.0-13.0); NEUTROPHILS % (AUTO) 74.8 % (42.0-75.0); PLATELET COUNT 277 X10^3/uL (150.0-450.0); RED BLOOD COUNT 2.61 X10^6/uL (4.7-6.0); RED CELL DISTRIBUTION WIDTH 17.9 % (11.6-16.5)
[2024-08-14 06:41] LABS: ALANINE AMINOTRANSFERASE 95 Units/L (12-78); ALBUMIN 1.9 g/dL (3.4-5.0); ALKALINE PHOSPHATASE 111 Units/L (46-116); ASPARTATE AMINO TRANSFERASE 68 Units/L (15-37); BLOOD UREA NITROGEN 23 mg/dL (7-18); CALCIUM 8.3 mg/dL (8.5-10.1); CARBON DIOXIDE 27.9 mmol/L (21-32); CHLORIDE 104 mmol/L (98-107); COR NA(FOR HYPERGLY) 138 mmol/L (136-145); CREATININE 1.16 mg/dL (0.70-1.30); GLUCOSE 141 mg/dL (65-99); MAGNESIUM 1.7 mg/dL (2.0-2.9); POTASSIUM 4.8 mmol/L (3.5-5.1); SODIUM 137 mmol/L (136-145); TOTAL PROTEIN 6.3 g/dL (6.4-8.2); eGFR NON BLACK RACES > 60 (>60)
--- NOTE | 2024-08-14 07:41 | RAD ---
EXAM:Portable chestHISTORY:DiarrheaCOMPARISON:06/24/19 25FINDINGS:Heart is enlarged. No congestive heart failure is noted. Right lung and left upper lung lamar appear free of acute infiltrates. Abnormal density is present in the retro cardiac area of the left lower lobe partially due to left pleural effusion. Accompanying infiltrate or atelectasis not excluded. Bony thorax is unremarkable.IMPRESSION:Mild cardiomegaly without congestive heart failureAbnormal parenchymal density cardiac area left lower lobe obscuring the left hemidiaphragm partially due to left pleural effusion however underlying infiltrate or atelectasis not excluded.THIS IS AN ELECTRONICALLY VERIFIED FINAL REPORT08/14/2024 7:37 AM - Electronically signed by Ray Gary MD
--- NOTE | 2024-08-14 11:03 | DR.H&P ---
H&P History & Physical for Day of: H&P Date: 08/14/24 Chief Complaint Chief Complaint: diarrhea, weakness History of Present Illness History of Present Illness: Mr Lacey is a 84y/o male with a PMH of CAD s/p PCI x2 , Type 2 DM, HTN, HLD and anemia presented with generalized weakness and diarrhea. He had cardiac stents placed in Jun 2024. He reports having worsening diarrhea for about a month. He had stool studies done outpatient which was positive for Cryptosporidium. He has been taking Ivermectin. ER work up showed hgb 7.9, Mag 1.7, elevated LFTs. He was started on hydration and admitted for further management. ER physician had ordered Alinia but it is not available at the pharmacy at this time. He reports improvement in diarrhea, only had one BM this morning. Denies any bleeding. Denies N/V or abdominal pain. Labs/imaging reviewed: -WBC 7.9 Hgb 7.3 Plt 277 K 4.8Mag 1.7 AST/ALT 68/95 -08/12/24 Cryptosporidium + Plan: transfuse 2 units PRBCs, monitor H&H. Continue hydration, change NS to 75cc/hr. Cardiac diet. Repeat stool studies. Order Alinia, will be able to get it from another hospital today. Resume home medications. Replace electrolytes as needed. Ambulate as tolerated. Monitor AM labs/imaging. Past Medical History Past Medical History: Coronary Artery Disease, Diabetes, Dyslipidemia, Hypertension, OH and Cancer Past Surgical History Surgical History: Angioplasty/Stents, Cholecystectomy and Other Family History Family Medical History: Diabetes Mellitus, [place] and Hypertension Social History Does any household member use tobacco: No Alcohol Use: None Drug Use: None Medications Home Medications: Home Medications Medication Instructions Recorded Confirmed Type aspirin 81 mg capsule 81 mg PO QDAY 06/18/24 08/13/24 History akoudbdwijes-ifvbooze-jtyjxo tablet 1 tab PO QDAY 06/18/24 08/13/24 History calcium 600 mg capsule 600 mg PO BID 06/24/24 08/13/24 History cholecalciferol (vitamin D3) 50 50 mcg PO DAILY 06/24/24 08/13/24 History mcg (2,000 unit) capsule (Vitamin D3) cyanocobalamin (vitamin B-12) 1,000 mcg PO DAILY 06/24/24 08/13/24 History 1,000 mcg tablet lutein 20 mg tablet 20 mg PO DAILY 06/24/24 08/13/24 History niacin 500 mg tablet 500 mg PO BID 06/24/24 08/13/24 History metformin 500 mg tablet,extended 1,000 mg PO BID Type 2 diabetes 08/03/24 08/13/24 History release 24 hr amlodipine 10 mg tablet 10 mg PO QDAY 08/13/24 08/13/24 History lisinopril 5 mg tablet 2.5 mg PO QDAY Financial Administrative Assistant added 08/13/24 08/13/24 History after stent placed 06/18/24 Allergies Allergies Allergy/AdvReac Type Severity Reaction Status Date / Time No Known Drug Allergies Allergy Unknown Verified 08/03/24 18:12 Labs 08/14/24 05:38 08/14/24 05:38 Labs: Laboratory WBC 7.9 X10^3/uL (3.6-10.0) 08/14/24 05:38 RBC 2.61 X10^6/uL (4.7-6.0) L 08/14/24 05:38 Hgb 7.3 g/dL (13.5-18.0) L 08/14/24 05:38 Hct 21.9 % (42.0-54.0) L 08/14/24 05:38 MCV 84.0 fL (80.0-100.0) 08/14/24 05:38 MCH 28.0 pg (27.0-34.0) 08/14/24 05:38 MCHC 33.3 g/dL (33.0-35.0) 08/14/24 05:38 RDW 17.9 % (11.6-16.5) H 08/14/24 05:38 Plt Count 277 X10^3/uL (150.0-450.0) 08/14/24 05:38 MPV 7.5 fL (7.4-11.0) 08/14/24 05:38 Neut % (Auto) 74.8 % (42.0-75.0) 08/14/24 05:38 Lymph % (Auto) 10.4 % (21.0-51.0) L 08/14/24 05:38 [place] % (Auto) 10.1 % (0.0-13.0) 08/14/24 05:38 Eos % (Auto) 4.2 % (0.9-2.9) H 08/14/24 05:38 Baso % (Auto) 0.5 % (0.2-1.0) 08/14/24 05:38 Neut # (Auto) 5.9 x10^3/uL (2.2-4.8) H 08/14/24 05:38 Lymph # (Auto) 0.8 X10^3/uL (1.3-2.9) L 08/14/24 05:38 [place] # (Auto) 0.8 x10^3/uL (0.3-0.8) 08/14/24 05:38 Eos # (Auto) 0.3 x10^3/uL (0.0-0.2) H 08/14/24 05:38 Baso # (Auto) 0.0 X10^3/uL (0.0-0.1) 08/14/24 05:38 Absolute Nucleated RBC 0.1 /100WBC 08/14/24 05:38 Sodium 137 mmol/L (136-145) 08/14/24 05:38 Corrected Sodium 138 mmol/L (136-145) 08/14/24 05:38 Potassium 4.8 mmol/L (3.5-5.1) 08/14/24 05:38 Chloride 104 mmol/L (98-107) 08/14/24 05:38 Carbon Dioxide 27.9 mmol/L (21-32) 08/14/24 05:38 BUN 23 mg/dL (7-18) H 08/14/24 05:38 Creatinine 1.16 mg/dL (0.70-1.30) 08/14/24 05:38 Est GFR (MDRD) Af Amer > 60 (>60) 08/14/24 05:38 Est GFR (MDRD) Non-Af > 60 (>60) 08/14/24 05:38 Glucose 141 mg/dL (65-99) H 08/14/24 05:38 Calcium 8.3 mg/dL (8.5-10.1) L 08/14/24 05:38 Corrected Calcium 10.0 mg/dL (8.5-10.1) 08/14/24 05:38 Magnesium 1.7 mg/dL (2.0-2.9) L 08/14/24 05:38 Total Bilirubin 0.40 mg/dL (0.2-1.0) 08/14/24 05:38 AST 68 Units/L (15-37) H 08/14/24 05:38 ALT 95 Units/L (12-78) H 08/14/24 05:38 Alkaline Phosphatase 111 Units/L (46-116) 08/14/24 05:38 Creatine Kinase 42 Units/L (39-308) 08/13/24 19:10 Troponin I High Sens 17.8 ng/L (4.0-60.0) 08/13/24 19:10 Total Protein 6.3 g/dL (6.4-8.2) L 08/14/24 05:38 Albumin 1.9 g/dL (3.4-5.0) L 08/14/24 05:38 Globulin 4.4 g/dL (2.5-4.5) 08/14/24 05:38 Albumin/Globulin Ratio 0.4 Ratio (1.1-2.1) L 08/14/24 05:38 Review of Systems Constitutional: Weakness Eyes: No Symptoms Reported ENT: No Symptoms Reported Respiratory: No Symptoms Reported Cardiovascular: No Symptoms Reported Gastrointestinal: Diarrhea Genitourinary: No Symptoms Reported Musculoskeletal: No Symptoms Reported Skin: No Symptoms Reported Neurological: No Symptoms Reported Physical Exam Vital Signs: Vital Signs Temperature 98.1 F Temperature 98.4 F Pulse Rate [Right Brachial] 86 Pulse Rate [Right Brachial] 78 Respiratory Rate 20 Respiratory Rate 16 Blood Pressure [Right Arm] 138/63 Blood Pressure [Right Arm] 129/63 O2 Sat by Pulse Oximetry 97 O2 Sat by Pulse Oximetry 92 Oriented: Normal Eyes: Normal Throat: Normal Respiratory: Clear Throughout Cardiovascular: Normal Auscultation: Bowel Sounds: Normal Palpation: Normal Tenderness: Normal Skin: Decreased [place] Musculoskeletal: Normal Psychiatric: Normal Mood Description: Calm Affect: Normal Speech Pattern: Clear and Appropriate Assessment/Plan (1) Diarrhea due to cryptosporidium: Status: Acute (2) Anemia: Qualifiers: Anemia type: unspecified type Qualified Code(s): D64.9 - Anemia, unspecified Status: Acute (3) Dehydration: Status: Acute (4) Hypomagnesemia: Status: Acute (5) Stented coronary artery: Status: Chronic Review H&P Reviewed: Yes Patient was examined?: Yes
[2024-08-14] MEDS: TUMS PO SCH (11:21)
[2024-08-14] MEDS: NIASPAN ER TAB 500 MG PO SCH (11:21)
[2024-08-14] MEDS: NORVASC TAB 10 MG PO SCH (11:21)
[2024-08-14] MEDS: PEPCID TAB 20 MG PO SCH (11:21)
[2024-08-14] MEDS: ZESTRIL TAB 5 MG PO SCH (11:22)
[2024-08-14] MEDS: ISOSORBIDE MONONITRATE ER 24-HR PO SCH (11:22)
[2024-08-14] MEDS: TOPROL XL PO SCH (11:23)
[2024-08-14] MEDS: PATIENT'S HOME MEDICATION (Prasugrel Hcl 10 mg tablet) PO SCH (11:51)
[2024-08-14 15:30] LABS: GIARDIA LAMBLIA ANTIGEN NEGATIVE (NEGATIVE)
[2024-08-14 15:33] LABS: CRYPTOSPORIDIUM PARVUM ANTIGEN POSITIVE (NEGATIVE)
[2024-08-14] MEDS ORDERED: CONSULT PHARMACY - POTASSIUM & MAGNESIUM XX SCH (17:00)
[2024-08-14] MEDS: NS 1,000 ML IV 1,000 ML with MAGNESIUM SULFATE 50% INJ VIAL 1 G IV SCH (17:15)
[2024-08-14] MEDS: NS 250 ML IV 250 ML IV ONE (17:17)
[2024-08-14] MEDS: TYLENOL 325 MG TAB PO PRN (20:49)
[2024-08-14] MEDS: GLUCOPHAGE XR 24-HR PO SCH (20:49)
[2024-08-14] MEDS: LIPITOR TAB 80 MG PO SCH (20:49)
[2024-08-14 23:56] VITALS: RESP 18
[2024-08-15] MEDS: NS 250 ML IV 250 ML IV ONE (01:13)
[2024-08-15 05:09] LABS: BASOPHILS % (AUTO) 0.5 % (0.2-1.0); EOSINOPHILS # (AUTO) 0.5 x10^3/uL (0.0-0.2); EOSINOPHILS % (AUTO) 5.1 % (0.9-2.9); HEMATOCRIT 25.4 % (42.0-54.0); HEMOGLOBIN 8.7 g/dL (13.5-18.0); LYMPHOCYTES # (AUTO) 1.3 X10^3/uL (1.3-2.9); LYMPHOCYTES % (AUTO) 14.1 % (21.0-51.0); MEAN CORPUSCULAR HEMOGLOBIN 28.5 pg (27.0-34.0); MEAN CORPUSCULAR VOLUME 83.7 fL (80.0-100.0); MEAN PLATELET VOLUME 7.6 fL (7.4-11.0); MONOCYTES # (AUTO) 0.9 x10^3/uL (0.3-0.8); MONOCYTES % (AUTO) 10.4 % (0.0-13.0); NEUTROPHILS # (AUTO) 6.3 x10^3/uL (2.2-4.8); NEUTROPHILS % (AUTO) 69.9 % (42.0-75.0); PLATELET COUNT 283 X10^3/uL (150.0-450.0); RED BLOOD COUNT 3.04 X10^6/uL (4.7-6.0); RED CELL DISTRIBUTION WIDTH 16.8 % (11.6-16.5)
[2024-08-15 05:36] LABS: ALANINE AMINOTRANSFERASE 85 Units/L (12-78); ALBUMIN 1.8 g/dL (3.4-5.0); ALKALINE PHOSPHATASE 111 Units/L (46-116); ASPARTATE AMINO TRANSFERASE 51 Units/L (15-37); BLOOD UREA NITROGEN 17 mg/dL (7-18); CALCIUM 8.6 mg/dL (8.5-10.1); CARBON DIOXIDE 26.7 mmol/L (21-32); CHLORIDE 105 mmol/L (98-107); COR CA(FOR HYPOALB) 10.4 mg/dL (8.5-10.1); COR NA(FOR HYPERGLY) 139 mmol/L (136-145); CREATININE 1.06 mg/dL (0.70-1.30); GLUCOSE 140 mg/dL (65-99); MAGNESIUM 1.5 mg/dL (2.0-2.9); POTASSIUM 4.3 mmol/L (3.5-5.1); SODIUM 138 mmol/L (136-145); TOTAL PROTEIN 6.4 g/dL (6.4-8.2); eGFR NON BLACK RACES > 60 (>60)
[2024-08-15 08:13] VITALS: BP 139/64; PULSE 88; TEMP 98.8; O2SAT 93
[2024-08-15 09:34] LABS: TOTAL IRON BINDING CAPACITY 149 ug/dL (250-450)
[2024-08-15] MEDS: NS 1,000 ML IV 1,000 ML with MAGNESIUM SULFATE 50% INJ VIAL 2 G IV SCH (09:34)
[2024-08-15] MEDS: ASPIRIN EC 81 MG PO SCH (09:34)
[2024-08-15] MEDS: MAG-OX TAB PO ONE (09:37)
[2024-08-15 09:38] LABS: IRON 14 ug/dL (50-175)
[2024-08-15] MEDS: NS IV ONE (09:38)
[2024-08-15] MEDS: MAGNESIUM SULFATE IV ONE (09:38)
== END 2024-08-15 12:50 | disposition home or self-care (01) ==
LOC: MED/SURG 18:55 → ER 18:55 → MED/SURG 22:53
PROVIDERS: ADMIT Internal Medicine; ATTEND Family Medicine